=== PATIENT | female | born 1960 ===

== ENCOUNTER 2025-06-11 05:53 | Inpatient (IN) | payer SELFPAY, MEDICAID ==
[~2025-06-11] VITALS: Ht 165.1 cm; Wt 67.8 kg
--- NOTE | 2025-06-11 06:57 | ED.PDOC ---
Musculoskeletal HPI Comments 65 year old female with PMHx DVT presents to the ED via EMS with a chief complaint of LT leg pain onset 2 weeks. Patient has been experiencing LT leg pain, numbness, sore sensation for the past 2 weeks. About 1 month ago she was diagnosed with DVT RT leg, had stent placed by Dr. Willson, was advised she also needed stent of LT leg. Patient noticed pain worsened this morning, called 911. Denies fall, injury, nausea, vomiting, diarrhea, fever, chills, chest pain, shortness of breath, dizziness, headache. No other symptoms or modifying factors present at this time. Chief Complaint: Lower Extremity Time Seen by MD: 06:45 Reviewed Notes: Medications, Allergies Allergies: Coded Allergies: Tetanus Toxoid (Verified Allergy, Unknown, 06/11/25) Information Source: Patient, Emergency Med Personnel Mode of Arrival: EMS Location: Left Extremity Location: Leg Timing: Weeks Prehospital treatment: None Severity: Moderate Able to Move Extremity: Yes Bear Weight: Limited Pain: Moderate Associated signs and symptoms: Numbness, Leg pain Past Medical History PAST MEDICAL HISTORY: Denies Surgical History: Denies all surgeries HAND STONER History: No Pertinent HAND STONER History Family History Family History: Reviewed,noncontributory to illness, No family hx of Cancer, No family hx of DM, No family hx of Heart alessandro, No family hx of HTN, No family hx ofKidney alessandro, No family hx of Liver alessandro, No family hx of Lung alessandro, No family hx of Stroke Social History Smoker: Cigarettes Alcohol: Denies ETOH Use Drugs: Denies Drug Use Lives In: Home Constitutional: denies: chills, diaphoresis, fatigue, fever, malaise, sweats, weakness, others EENTM: denies: blurred vision, double vision, ear bleeding, ear discharge, ear drainage, ear pain, ear ringing, eye pain, eye redness, hearing loss, mouth pain, mouth swelling, nasal discharge, nose bleeding, nose congestion, nose pain, photophobia, tearing, throat pain, throat swelling, voice changes, others Respiratory: denies: cough, hemoptysis, orthopnea, SOB at rest, shortness of breath, SOB with excertion, stridor, wheezing, others Cardiovascular: denies: chest pain, dizzy spells, diaphoresis, Dyspnea on exertion, edema, irregular heart beat, left arm pain, lightheadedness, palpitations, PND, syncope, others Gastrointestinal: denies: abdomen distended, abdominal pain, blood streaked bowels, constipated, diarrhea, dysphagia, difficulty swallowing, hematemesis, melena, nausea, poor appetite, poor fluid intake, rectal bleeding, rectal pain, vomiting, others Genitourinary: denies: abnormal vagina bleeding, burning, dyspareunia, dysuria, flank pain, frequency, hematuria, incontinence, pain, , vagina discharge, urgency, others Neurological: reports: numbness (LT leg); denies: dizziness, fainting, headache, left sided numbness, left sided weakness, paresthesia, pre-existing deficit, right sided numbness, right sided weakness, seizure, speech problems, tingling, tremors, weakness, others Musculoskeletal: reports: others (Lt leg pain, numbness, sore sensation); denies: back pain, gout, joint pain, joint swelling, muscle pain, muscle stiffness, neck pain Integumetry: denies: bruises, change in color, change in hair/nails, dryness, laceration, lesions, lumps, rash, wounds, others Allergic/Immunocompromised: denies: Difficulty Healing, Frequent Infections, Hives, Itching, others Hematologic/Lymphatic: denies: anemia, blood clots, easy bleeding, easy bruising, swollen glands, others Endocrine: denies: excessive hunger, excessive sweating, excessive thirst, excessive urination, flushing, intolerance to cold, intolerance to heat, unexplained weight gain, unexplained weight loss, others Psychiatric: denies: anxiety, bipolar disorder, depression, hopeless, panic disorder, schizophrenia, sleepless, suicidal, others All Other Systems: Reviewed and Negative Physical Exam General Appearance: Normal HEENT: Normal ENT Inspection, Pharynx Normal, TMs Normal Neck: Full Range of Motion, Non-Tender, Normal, Normal Inspection Respiratory: Chest Non-Tender, Lungs Clear, No Accessory Muscle Use, No Respiratory Distress, Normal Breath Sounds Cardiovascular: No Edema, No JVD, No Murmur, No Gallop, Normal Peripheral Pulses, Regular Rate/Rhythm Breast Exam: Deferred Gastrointestinal: No Organomegaly, Non Tender, No Pulsatile Mass, Normal Bowel Sounds, Soft Genitalia: Deferred Pelvic: Deferred Rectal: Deferred Extremities: No calf tenderness, Normal capillary refill, Normal inspection, Normal range of motion, Non-tender, No pedal edema Musculoskeletal : Apperance: Normal Neurologic: Alert, shaping machine operator II-XII nml as Tested, No Motor Deficits, Normal Affect, Normal Mood, No Sensory Deficits Cerebellar Function: Normal Reflexes: Normal Skin: Dry, Normal Color, Warm Lymphatic: No Adenopathy Was a procedure done? Was a procedure done?: No Differential Diagnosis EXT Differential Diagnosis: Deep Vein Thrombosis, Arthritis X-Ray, Labs, Meds, VS Vital Signs Date Time Temp Pulse Resp B/P (MAP) Pulse Ox O2 Delivery O2 Flow Rate FiO2 06/11/25 07:28 98.9 76 17 133/67 (89) 98 98.9 06/11/25 06:01 99.7 81 16 118/77 98 99.7 Lab Test 06/11/25 09:33 06/11/25 06:46 Range/Units Lactic Acid Level 2.0 0.4-2.0 mmol/L White Blood Count 31.4 *H 4.4-10.8 10^3/uL Red Blood Count 5.84 H 4.0-5.20 10^6/uL Hemoglobin 15.7 12.2-16.2 g/dL Hematocrit 48.3 H 36.0-46.0 % Mean Corpuscular Volume 82.7 80.0-100.0 fL Mean Corpuscular Hemoglobin 27.0 L 28.0-32.0 pg Mean Corpuscular Hemoglobin Concent 32.6 32.0-36.0 g/dL Red Cell Distribution Width 16.1 H 11.8-14.3 % Platelet Count 373 140-450 10^3/uL Mean Platelet Volume 7.4 6.9-10.8 fL Neutrophils (%) (Auto) 37.0-80.0 % Lymphocytes (%) (Auto) 10.0-50.0 % Monocytes (%) (Auto) 0.0-12.0 % Basophils (%) (Auto) 0.0-2.0 % Neutrophils # (Auto) 1.6-8.6 10 ^3/uL Lymphocytes # (Auto) 0.4-5.4 10 ^3/uL Monocytes # (Auto) 0-1.3 10 ^3/uL Differential Total Cells Counted 100.0 100 Neutrophils % (Manual) 18 L 37.0-80.0 Band Neutrophils % (Manual) 0 Lymphocytes % (Manual) 78 H 10.0-50.0 Monocytes % (Manual) 4 0-12 Eosinophils % (Manual) 0 0-7 Basophils % (Manual) 0 0.0-2.0 Metamyelocytes % (manual) 0 Myelocytes % (Manual) 0 Promyelocytes % (Manual) 0 Blast Cells % (Manual) 0 Reactive Lymphocytes 0 Platelet Estimate Adequate Prothrombin Time 10.1 9.3-11.8 sec Prothrombin Time INR 0.95 0.9-1.15 Activated Partial Thromboplast Time 25.1 24.5-34.5 SEC Sodium Level 135 L 136-145 mmol/L Potassium Level 4.6 3.5-5.1 mmol/L Chloride Level 105 98-107 mmol/L Carbon Dioxide Level 23 20-31 mmol/L Anion Gap 7 5-15 Blood Urea Nitrogen 9 9-23 mg/dL Creatinine 0.97 0.550-1.02 mg/dL Glomerular Filtration Rate Calc 65 >90 mL/min BUN/Creatinine Ratio 9.3 L 10.0-20.0 Serum Glucose 249 H 74-106 mg/dL Calcium Level 9.6 8.7-10.4 mg/dL [place] [id number] Ph: [phone] DIAGNOSTIC IMAGING Diagnostic Imaging Report : [id number] Signed PATIENT: HOLLY VILLASEÑOR ACCT: [id number] UNIT: [id number] : 1960 LOC: ER ROOM / BED: / AGE / SEX: 65 / F ADM STATUS: REG ER SERVICE 4 ORDERING PHYSICIAN: KINGSTON FUNG MD PROCEDURE(s): CXRP - CHEST PORTABLE REASON: sepsis ORDER NUMBER(s): [id number], ACCESSION NUMBER(s): [id number] EXAM: XY CHEST PORTABLE HISTORY: sepsis COMPARISON: For reasons unknown, chest x-ray dated 04/28/2025 was not made available on the PACS system for viewing. TECHNIQUE: Portable upright AP view of the chest was performed. FINDINGS: No pneumothorax, consolidative infiltrates, or pulmonary edema. There is mild scarring in the lung bases. The heart is not enlarged. IMPRESSION: No acute intrathoracic process. ATED BY: GRAY JULIAN MD DICTATED DATE/TIME: 06/11/25 1014 SIGNED BY: GRAY JULIAN MD SIGNED DATE/TIME: 06/11/25 1014 CC: Time of 1ST Reevaluation: 07:15 Reevaluation 1ST: Unchanged Patient Education/Counseling: Diagnosis, Treatment, Prognosis Family Education/Counseling: No Family Present Sepsis Sepsis Reasesment Focused Exam Orders: Laboratory Tests 06/11/25 09:33: Lactic Acid Level 2.0 Critical Care Note Critical Care Time?: No Stability Stability form required: No Heart Score Heart Score: Heart Score Response (Comments) Value History N/A 0 EKG N/A 0 Age N/A 0 Risk Factors N/A 0 Troponin N/A 0 Total 0 I personally scribed for KINGSTON FUNG MD ([email or web address]) on 06/11/25 at 06:57. Electronically submitted by Isis Lebron ([email or web address]). I personally scribed for KINGSTON FUNG MD ([email or web address]) on 06/11/25 at 10:28. Electronically submitted by Colleen Collazo ([email or web address]). KINGSTON FUNG MD Jun 11, 2025 06:57
[2025-06-11 07:12] LABS: Hematocrit 48.3 % (36.0-46.0); Hemoglobin 15.7 g/dL (12.2-16.2); Mean Corpuscular Hemoglobin 27.0 pg (28.0-32.0); Mean Corpuscular Volume 82.7 fL (80.0-100.0)
[2025-06-11 07:18] LABS: Chloride 105 mmol/L (98-107); Potassium 4.6 mmol/L (3.5-5.1)
[2025-06-11 07:19] LABS: Anion Gap 7 (5-15); Carbon Dioxide 23 mmol/L (20-31)
[2025-06-11 07:20] LABS: Calcium 9.6 mg/dL (8.7-10.4)
[2025-06-11 07:23] LABS: INR 0.95 (0.9-1.15); Partial Thromboplastin Time 25.1 SEC (24.5-34.5); Prothrombin Time 10.1 sec (9.3-11.8)
[2025-06-11 07:25] LABS: BUN/Creatinine Ratio 9.3 (10.0-20.0)
[2025-06-11 07:27] LABS: Blood Urea Nitrogen 9 mg/dL (9-23); Glucose 249 mg/dL (74-106); Sodium 135 mmol/L (136-145)
[2025-06-11 08:07] LABS: Total Cells Counted 100.0 (100)
[2025-06-11] MEDS ORDERED: CEFEPIME 1GM/50ML 50 ML IV ONE (09:15)
--- NOTE | 2025-06-11 10:17 | DVH ---
EXAM: XY CHEST PORTABLE HISTORY: sepsis COMPARISON: For reasons unknown, chest x-ray dated 04/28/2025 was not made available on the PACS system for viewing. TECHNIQUE: Portable upright AP view of the chest was performed. FINDINGS: No pneumothorax, consolidative infiltrates, or pulmonary edema. There is mild scarring in the lung bases. The heart is not enlarged. IMPRESSION: No acute intrathoracic process.
[2025-06-11] MEDS: SODIUM CHLORIDE 0.9% 1,000 ML IV ONE (10:34)
[2025-06-11] MEDS: MORPHINE SULFATE 4 MG/ML SYR/VIAL IV ONE (10:38)
[2025-06-11] MEDS: ONDANSETRON HCL 4 MG/2 ML VIAL IV ONE (10:38)
[2025-06-11] MEDS: CEFEPIME 1GM/50ML 50 ML IV ONE (10:39)
[2025-06-11 10:40] VITALS: PULSE 86; RESP 16; O2SAT 97
[2025-06-11] MEDS ORDERED: VANCOMYCIN PER PHARMACY 0 MG IV SCH ×2 (11:00→17:45)
[2025-06-11] MEDS ORDERED: DOCUSATE SOD 100 MG CAP PO PRN ×2 (11:00→17:45)
[2025-06-11] MEDS ORDERED: DEXTROSE (50%) 50ML SYRG IV PRN ×2 (11:00→17:45)
[2025-06-11] MEDS ORDERED: ONDANSETRON HCL 4 MG/2 ML VIAL IV PRN ×2 (11:00→17:45)
[2025-06-11] MEDS ORDERED: NITROGLYCERIN 0.4 MG SL TAB SL PRN ×2 (11:00→17:45)
[2025-06-11] MEDS: SODIUM CHLORIDE 0.9% 1,000 ML IV SCH ×2 (11:00→17:45)
[2025-06-11 11:01] LABS: Urine Protein, UAD 1+ (Negative)
--- NOTE | 2025-06-11 11:05 | DVHHP2 ---
History of Present Illness Reason for Visit: left leg pain History of Present Illness 65 yr old female with a significant past medical history of peripheral arterial disease status post three right lower extremity stents placed in March 2025, coronary artery disease status post coronary stent in February 2025, prior DVT, type 2 diabetes mellitus, hypertension, and surgical history of hysterectomy and tonsillectomy, who presents with left lower extremity pain, numbness, and decreased sensation ongoing for approximately two weeks. The patient reports that approximately one month ago she was diagnosed with a DVT, at which time a vascular stent was placed by Dr. Rascon. She states she was told she would eventually need intervention on the left leg, which is pending as an outpatient in [place], but this has been delayed due to insurance issues. She also reports she was supposed to undergo an additional cardiac stent procedure, which has also been delayed. She reports burning pain, numbness, and decreased sensation in the left leg. She denies chest pain, shortness of breath, fever, or trauma. She notes redness and mild erythema of the left leg. She states she is not currently taking aspirin, having stopped it around April 2025 due to inability to obtain a refill. She is not on anticoagulation at this time per her report. She continues to smoke cigarettes. In the emergency department, she received IV morphine and ondansetron. Laboratory studies revealed marked leukocytosis (WBC 31.4) without fever, glucose 249 , sodium 135 , and lactate 2.0 . Chest x-ray was unremarkable. Blood cultures were obtained. Given concern for acute limb ischemia versus vascular compromise, the patient is admitted for vascular evaluation and close monitoring of the left limb Past Medical History See HPI above Past Surgical History See HPI above Family History Reviewed, non-contributory to the management of this case. Past Social History Patient does smoke by history denies drug or alcohol use Review of Systems Constitutional: No: Fever, Chills, Sweats, Weakness, Malaise, Other Eyes: No: Pain, Vision change, Conjunctivae inflammation, Eyelid inflammation, Other, Redness ENT: No: Ear pain, Ear discharge, Nose pain, Nose discharge, Nose congestion, Mouth pain, Mouth swelling, Throat pain, Throat swelling, Other Respiratory: No: Cough, Dry, Shortness of breath, SOB with excertion, Wheezing, Hemoptysis, Pleuritic Pain, Sputum, Wheezing, Other Cardiovascular: No: Chest Pain, Palpitations, Orthopnea, Paroxysmal Noc. Dyspnea, Edema, Lt Headedness, Other Gastrointestinal: No: Nausea, Vomiting, Abdominal Pain, Diarrhea, Constipation, Melena, Hematochezia, Other Genitourinary: No Dysuria, No Frequency, No Incontinence, No Hematuria, No Retention, No Other Musculoskeletal: leg pain; No: other, neck pain, shoulder pain, arm pain, back pain, hand pain, foot pain Skin: No: Rash, Lesions, Jaundice, Bruising, Other Neurological: No: Weakness, Numbness, Incoordination, Change in speech, Confusion, Seizures, Other Allergies: Coded Allergies: Tetanus Toxoid (Verified Allergy, Unknown, 06/11/25) Exam Vital Signs Vital Signs Date Time Temp Pulse Resp B/P (MAP) Pulse Ox O2 Delivery O2 Flow Rate FiO2 06/11/25 10:40 98.0 86 16 152/90 (110) 97 98.0 06/11/25 10:40 Room Air* 0 21 General Appearance: Alert, Oriented X3, Cooperative, No acute distress HEENT: Atraumatic, PERRLA, EOMI, Mucous membr. moist/pink Respiratory: Clear to auscultation, Normal air movement Cardiovascular: Regular rate, Normal S1, Normal S2, No murmurs Abdominal: Normal bowel sounds, Soft, No tenderness, No hepatospenomegaly, No masses Extremities: No clubbing, Other (left leg with erythema, mild cool nursing to doppler pulse ) Skin: No rashes, No breakdown, No significant lesion Neuro: Normal speech, Strength at 5/5 X4 ext, Normal tone, Sensation intact, Cranial nerves 3-12 NL, Other (neuro non focal) Psych/Mental Status: Mental status NL, Mood NL Labs/Xrays Chest x-ray unremarkable I reviewed labs, imaging CT scan abdomen pelvis, EKG and all diagnostic studies on this patient from ED records and the medical chart Labs Test 06/11/25 10:49 06/11/25 09:33 06/11/25 06:46 Range/Units Lactic Acid Level 2.0 0.4-2.0 mmol/L White Blood Count 31.4 *H 4.4-10.8 10^3/uL Red Blood Count 5.84 H 4.0-5.20 10^6/uL Hemoglobin 15.7 12.2-16.2 g/dL Hematocrit 48.3 H 36.0-46.0 % Mean Corpuscular Volume 82.7 80.0-100.0 fL Mean Corpuscular Hemoglobin 27.0 L 28.0-32.0 pg Mean Corpuscular Hemoglobin Concent 32.6 32.0-36.0 g/dL Red Cell Distribution Width 16.1 H 11.8-14.3 % Platelet Count 373 140-450 10^3/uL Mean Platelet Volume 7.4 6.9-10.8 fL Neutrophils (%) (Auto) 37.0-80.0 % Lymphocytes (%) (Auto) 10.0-50.0 % Monocytes (%) (Auto) 0.0-12.0 % Basophils (%) (Auto) 0.0-2.0 % Neutrophils # (Auto) 1.6-8.6 10 ^3/uL Lymphocytes # (Auto) 0.4-5.4 10 ^3/uL Monocytes # (Auto) 0-1.3 10 ^3/uL Differential Total Cells Counted 100.0 100 Neutrophils % (Manual) 18 L 37.0-80.0 Band Neutrophils % (Manual) 0 Lymphocytes % (Manual) 78 H 10.0-50.0 Monocytes % (Manual) 4 0-12 Eosinophils % (Manual) 0 0-7 Basophils % (Manual) 0 0.0-2.0 Metamyelocytes % (manual) 0 Myelocytes % (Manual) 0 Promyelocytes % (Manual) 0 Blast Cells % (Manual) 0 Reactive Lymphocytes 0 Platelet Estimate Adequate Prothrombin Time 10.1 9.3-11.8 sec Prothrombin Time INR 0.95 0.9-1.15 Activated Partial Thromboplast Time 25.1 24.5-34.5 SEC Sodium Level 135 L 136-145 mmol/L Potassium Level 4.6 3.5-5.1 mmol/L Chloride Level 105 98-107 mmol/L Carbon Dioxide Level 23 20-31 mmol/L Anion Gap 7 5-15 Blood Urea Nitrogen 9 9-23 mg/dL Creatinine 0.97 0.550-1.02 mg/dL Glomerular Filtration Rate Calc 65 >90 mL/min BUN/Creatinine Ratio 9.3 L 10.0-20.0 Serum Glucose 249 H 74-106 mg/dL Calcium Level 9.6 8.7-10.4 mg/dL SEPSIS Sepsis Screen Date sepsis recognized/suspect: Jun 11, 2025 Time Sepsis recognized/suspect: 1040 Recent Procedure: No On Antibiotic Therapy: No Respiratory Rate >20: No Heart Rate >90: No Temp<36 C (96.8 F) or >38.3 C: No SBP <90 or MAP <65 mmHG: No New Acute Mental Status Change: No Is the patient on CPAP, BIPAP,: No Physician Orders Urinalysis (06/11/25 09:05) Chest Portable (06/11/25 09:05) Accucheck (06/11/25 09:05) Blood Culture (06/11/25 09:05) Notify Md If Map <65 Or Bp<90 (06/11/25 09:05) If Map<65 Start Vasopressor (06/11/25 09:05) Sepsis Reassesment After Fluid (06/11/25 10:05) Insert Midline (06/11/25 09:18) Cefepime 1gm/50ml (Maxipime 1gm/50ml) (06/11/25 10:45) Admit (06/11/25 10:53) Allergies (06/11/25 10:53) Code Status (06/11/25 10:53) 0.9% Ns 1000 Ml (06/11/25 11:00) Ondansetron Hcl (Zofran) (06/11/25 11:00) Docusate Sodium Capsule (Colace Capsule) (06/11/25 11:00) Complete Blood Count (06/12/25 04:00) Comprehensive Metabolic Panel (06/12/25 04:00) Cardiac Diet-2gna,Lofat,Lochol (06/11/25 Lunch) Condition: Stable (06/11/25 10:53) BRP (06/11/25 10:53) Morphine Sulfate Injection (06/11/25 11:00) Sequential Compression Device (06/11/25 ) Nitroglycerin Sublingual (Ntrostat Subli (06/11/25 11:00) Stat Ekg For Chest Pain (06/11/25 10:53) Notify Md Of Changes From Base (06/11/25 10:53) Imaging Manager For 24 Hours (06/11/25 10:53) Emergency Dysrhythmia Protocol (06/11/25 10:53) Rhythm Strips Once Every Shift (06/11/25 10:53) Oxygen By Nasal Cannula (06/11/25 10:53) Glucose Blood (Accu-Chek Comfort Curve T (06/11/25 11:30) Vital Signs Date Time Temp Pulse Resp B/P (MAP) Pulse Ox O2 Delivery O2 Flow Rate FiO2 06/11/25 10:40 98.0 86 16 152/90 (110) 97 98.0 06/11/25 10:40 86 16 97 Room Air* 0 21 06/11/25 10:40 82 16 152/90 (110) 97 06/11/25 10:38 82 16 152/90 06/11/25 07:28 98.9 76 17 133/67 (89) 98 98.9 06/11/25 06:01 99.7 81 16 118/77 98 99.7 Laboratory Tests Test 06/11/25 06:46 06/11/25 09:33 White Blood Count 31.4 10^3/uL (4.4-10.8) *H Lactic Acid Level 2.0 mmol/L (0.4-2.0) Medications Medications Dose Ordered Sig/Yamilex Route Start Time Stop Time Status Last Admin Dose Admin Cefepime HCl 50 ml @ 50 mls/hr ONCE ONCE IV 06/11/25 10:45 06/11/25 11:44 06/11/25 10:39 50 MLS/HR Morphine Sulfate 4 mg ONCE ONCE IV 06/11/25 06:45 06/11/25 06:46 DC 06/11/25 10:38 4 MG Ondansetron HCl 4 mg ONCE ONCE IV 06/11/25 06:45 06/11/25 06:46 DC 06/11/25 10:38 4 MG Sodium Chloride 1,000 ml @ 1,000 mls/hr Q1H ONCE IV 06/11/25 06:45 06/11/25 07:44 DC 06/11/25 10:34 1,000 MLS/HR Assessment/Plan Assessment/Plan 65 female with admitted for left lower extremity pain, numbness, and decreased sensation in the setting of known peripheral arterial disease and recent vascular interventions, concerning for possible acute or subacute limb ischemia, requiring vascular surgery evaluation and inpatient monitoring. acute Left lower extremity pain with numbness and decreased sensation concern for limb ischemia (etiology remains unclear until the cta angio returns but with stable exam) Peripheral arterial disease, status post right lower extremity stents (Mar 2025)/Known advanced PAD Two-week history of worsening symptoms Left leg with erythema and sensory changes Neurovascular checks Circulation and pulse checks per nursing q1h for now Vascular surgery consult (Dr. Rascon) (will change to stat if there if vascular occlusion). if not available specialist will need to transfer to higher level of care ordered CT angiography with runoff ordered pending results Initiate heparin infusion pending vascular evaluation Resume antiplatelet therapy once cleared acute severe Leukocytosis without fever likely 2nd infection vs tissue necrosis WBC 31.4 Blood cultures 2 obtained Monitor CBC and clinical status ordered vanco and cefepime for now ordered lactic ordered heparin for now Coronary artery disease, status post coronary stent (Feb 2025) Not currently on aspirin Restart aspirin when deemed safe Cardiology consult (Dr. Bean) chronic problems Type 2 diabetes mellitus with hyperglycemia ISS/Accu-checks History of DVT, not currently anticoagulated pt ran out of medication Tobacco use disorder Active smoker Smoking cessation counseling FEN / PPx Fluids: IV fluids as needed Electrolytes: Monitor BMP Nutrition: Cardiac/diabetic diet DVT Prophylaxis: Therapeutic heparin GI Prophylaxis: Not indicated Disposition Admit to telemetry for vascular surgery evaluation, anticoagulation, neurovascular monitoring, and completion of CTA with runoff. Further intervention pending vascular surgery recommendations. Plan discussed with: Patient My Orders Orders - YAJAIRA STONE DNP Procedure Category Date Status Time Admit ADMIT 06/11/25 Verified 10:53 Allergies [facility] 06/11/25 Verified 10:53 Code Status CODE 06/11/25 Verified 10:53 0.9% Ns 1000 Ml [facility] 06/11/25 Verified 11:00 Ondansetron Hcl [facility] 06/11/25 Verified (Zofran) 11:00 Docusate Sodium [facility] 06/11/25 Verified Capsule (Colace 11:00 Complete Blood Count LAB 06/12/25 Verified 04:00 Comprehensive LAB 06/12/25 Verified Metabolic Panel 04:00 Cardiac DIET 06/11/25 Verified Diet-2gna,Lofat,Lochol Lunch Condition: Stable [facility] 06/11/25 Verified 10:53 BRP [facility] 06/11/25 Verified 10:53 Morphine Sulfate [facility] 06/11/25 Verified Injection 11:00 Sequential [facility] 06/11/25 Verified Compression Device Nitroglycerin [facility] 12/18/25 Verified Sublingual (Ntrostat 11:00 Stat Ekg For Chest [facility] 06/11/25 Verified Pain 10:53 Notify Md Of Changes [facility] 06/11/25 Verified From Base 10:53 Imaging Manager For [facility] 06/11/25 Verified 24 Hours 10:53 Emergency Dysrhythmia [facility] 06/11/25 Verified Protocol 10:53 Rhythm Strips Once [facility] 06/11/25 Verified Every Shift 10:53 Oxygen By Nasal RT 06/11/25 Verified Cannula 10:53 Glucose Blood [facility] 06/11/25 Verified (Accu-Chek Comfort 11:30 Date of Service: Jun 11, 2025 Billing Provider: YAJAIRA STONE DNP Common Visit Codes: [id number] INP/OBS CARE (HIGH), [id number] CARE 30- 74 MIN (Total critical care time: Approximately 45 minutes This critical care time included obtaining a history; examining the patient; pulse oximetry; ordering and review of studies; arranging urgent treatment with development of a management plan; evaluation of patient's response to treatment; frequent reassessment; and, discussions with other providers.) YAJAIRA STONE DNP Jun 11, 2025 11:05
[2025-06-11] MEDS: ACCU-CHEK COMFORT CURVE STRIP VI SCH ×2 (11:30→21:18)
[2025-06-11] MEDS: IOHEXOL 350 MG/ML 100ML IJ ONE (11:47)
[2025-06-11] MEDS: LACTATED RINGER'S 1,700 ML IV ONE (11:57)
[2025-06-11] MEDS: VANCOMYCIN 1GM/250ML KIT 250 ML IV ONE (11:57)
[2025-06-11 11:58] LABS: Hematocrit 47.8 % (36.0-46.0); Hemoglobin 15.2 g/dL (12.2-16.2); Mean Corpuscular Hemoglobin 26.9 pg (28.0-32.0); Mean Corpuscular Volume 84.4 fL (80.0-100.0)
[2025-06-11] MEDS ORDERED: MORPHINE SULFATE 4 MG/ML SYR/VIAL IV PRN (12:00)
[2025-06-11] MEDS: InsuLIN REG 1unit/0.01ml Soln (100units/ml) SC SCH ×2 (12:17→21:15)
[2025-06-11 12:22] LABS: INR 0.97 (0.9-1.15); Partial Thromboplastin Time 24.5 SEC (24.5-34.5); Prothrombin Time 10.3 sec (9.3-11.8)
[2025-06-11 12:28] LABS: Total Cells Counted 100.0 (100)
--- NOTE | 2025-06-11 12:45 | DVH ---
INDICATION: eval for arterial occlusion in left leg severe leg pain TECHNIQUE: CT axial images of the abdomen , pelvis, lower extremities are obtained without contrast. Coronal and sagittal reformats were obtained. Radiation Dose Information: CTDI volume is 8.6 mGy. Dose-length product is 1270.14 mGy*cm COMPARISON: 04/29/2025 FINDINGS: Coronary artery calcification disease. Abdominal aorta demonstrates atherosclerotic calcification disease, eccentric mural wall thrombus without evidence for aneurysmal dilatation. 60% stenosis of the proximal celiac artery. The SMA demonstrates mild less than 50% stenosis. Bilateral renal arteries dem onstrate no high-grade stenosis. ADOLFO patent. The left common iliac artery demonstrates 50% stenosis. The right common iliac artery demonstrates 50% stenosis. The left external iliac artery demonstrates 70% stenosis proximally. Approximately 50% stenosis of the left AMERICANIZATION TEACHER. Occlusion of the left SFA proximally with reconstitution of the left popliteal artery. The left popliteal artery demonstrates long segment moderate stenosis, 60% stenosis. The left anterior tibial, posterior tibial and peroneal arteries are patent to the level of the left ankle. There is a right external iliac artery stent. Occlusion of the right internal iliac artery proximally with distal reconstitution. Approximate 50% stenosis of the right AMERICANIZATION TEACHER. Right SFA demonstrates moderate grade stenosis distally, 60% stenosis. Right popliteal artery demonstrates [id number] stenosis diffusely of up to apex approximate 50% stenosis. The right posterior tibial and peroneal arteries are patent up to the level of the ankle. The right anterior tibial artery is poorly opacified as it approaches the ankle. Lung bases demonstrate atelectasis. Adrenal glands, spleen, pancreas unremarkable. No enhancing hepatic lesion. No CT evidence for cholelithiasis. No hydronephrosis. Small hiatal hernia. Small bowel loops normal in caliber. Colonic diverticular disease. Moderate volume stool in the colon. Bladder partially distended. No free pelvic fluid. No inguinal lymphadenopathy. [id number] thoracolumbar degenerative disc disease. IMPRESSION: Occlusion of the left SFA proximally /at its origin with reconstitution of the left popliteal artery. Long segment moderate grade stenosis of the left popliteal artery, approximately 60%. Recommend vascular surgery/ IR consultation. 70% stenosis of the proximal left external iliac artery. 50% stenosis left AMERICANIZATION TEACHER. Right external iliac artery stent. 50% stenosis right AMERICANIZATION TEACHER. Distal right SFA 60% stenosis. Poor opacification of the distal right anterior tibial artery. 60% stenosis of the proximal celiac artery. Coronary artery calcification disease.
[2025-06-11] MEDS: HEPARIN SODIUM (PORCINE) 5000 UNITS/ML 1ML VIAL IV ONE (16:04)
[2025-06-11] MEDS: HEPARIN DRIP/D5W 100UNITS/ML 250 ML IV SCH ×3 (16:08→20:47)
[2025-06-11 17:04] VITALS: BP 129/68; PULSE 86; RESP 20; TEMP 98; O2SAT 100
[2025-06-11 17:11] VITALS: BP 129/68; PULSE 86; RESP 16; TEMP 98; O2SAT 100
--- NOTE | 2025-06-11 17:12 | DVH ---
CLINICAL HISTORY: eval for dvt to left leg COMPARISON: US RT LOWER DVT on DOS: 04/16/25 TECHNIQUE: Duplex Doppler evaluation of the deep venous system of the left lower extremity from the common femoral vein to the popliteal vein including color Doppler and spectral/pulsed waveform analysis was performed. FINDINGS: The common femoral vein demonstrates appropriate compressibility and waveform variability. There is compressibility/patency of the great saphenous vein at the proximal thigh. The femoral vein demonstrates appropriate compressibility and waveform variability. The deep femoral vein demonstrates appropriate compressibility and waveform variability. The popliteal vein demonstrates appropriate compressibility and waveform variability. There is normal compressibility at the tibioperoneal trunk. IMPRESSION: 1. No left deep venous thrombosis. 2. If clinical concern/symptoms persist or worsen, short-interval follow-up study is suggested.
--- NOTE | 2025-06-11 17:15 | PRN ---
Misceleneous Note Note Note pt admission on hold since had ordered ct angio that was not completed prior to admission while waiting found to have Occlusion of the left SFA proximally /at its origin with reconstitution of the left popliteal artery. Long segment moderate grade stenosis of the left popliteal artery, approximately 60%. Recommend vascular surgery/ IR consultation. 70% stenosis of the proximal left external iliac artery. 50% stenosis left PROOF TECHNICIAN HELPER. Right external iliac artery stent. 50% stenosis right PROOF TECHNICIAN HELPER. Distal right SFA 60% stenosis. Poor opacification of the distal right anterior tibial artery. 60% stenosis of the proximal celiac artery. did speak with vascular not available to see pt since no specialist available will have to hold dc and transfer to higher level of care did order heparin thearpy prior to findings, did speak with ed team pt to be transferred with need vascular surgeon YAJAIRA STONE DNP Jun 11, 2025 17:15
[2025-06-11] MEDS ORDERED: HEPARIN SODIUM (PORCINE) 5000 UNITS/ML 1ML VIAL IV ONE (17:45)
[2025-06-11] MEDS ORDERED: MORPHINE SULFATE INJ 2 MG/ml SYRG IV PRN (17:45)
[2025-06-11 18:24] LABS: Mean Corpuscular Volume 83.8 fL (80.0-100.0)
[2025-06-11 18:26] LABS: Hematocrit 44.1 % (36.0-46.0); Hemoglobin 14.1 g/dL (12.2-16.2); Mean Corpuscular Hemoglobin 26.8 pg (28.0-32.0)
[2025-06-11 18:30] VITALS: BP 129/77; PULSE 62; RESP 18; TEMP 98.1; O2SAT 91
[2025-06-11 19:11] LABS: INR 1.01 (0.9-1.15); Prothrombin Time 10.7 sec (9.3-11.8)
[2025-06-11 19:19] LABS: Partial Thromboplastin Time 79.1 SEC (24.5-34.5)
[2025-06-11 19:28] LABS: Anisocytosis Slight; Total Cells Counted 100.0 (100)
[2025-06-11 20:00] VITALS: PULSE 106; PULSE 91; RESP 18
--- NOTE | 2025-06-11 20:45 | CONS ---
Pharmacy Clinical Information: HEPARIN PER DVT PROTOCOL: APTT result of 79.1 received from draw on 06/11 @1806. Reduce rate 200 units per hour. New rate is 1000 units per hour (10ml/hr). Orders read back and confirmed with TRACY Moore @2039. Next APTT scheduled for 06/12 @0280. CJ TERRELL PHARMACIST Jun 11, 2025 20:45
[2025-06-11 21:00] VITALS: BP 141/72; PULSE 94; RESP 18; TEMP 98.4; O2SAT 90
[2025-06-11] MEDS: DOCUSATE SOD 100 MG CAP PO SCH (21:11)
[2025-06-11] MEDS: CEFEPIME 1GM/50ML 50 ML IV SCH (21:17)
[2025-06-11] MEDS ORDERED: InsuLIN REG 1unit/0.01ml Soln (100units/ml) SC SCH (22:00)
[2025-06-11] MEDS ORDERED: CEFEPIME 1GM/50ML 50 ML IV SCH (22:00)
[2025-06-12] VITALS (8 sets, daily range): BP systolic 137–152; BP diastolic 65–84; PULSE 65–111; RESP 16–20; TEMP 97.6–99.4; O2SAT 93–100
[2025-06-12] MEDS ORDERED: VANCOMYCIN 500mg/100mL 100 ML IV SCH
[2025-06-12] MEDS: VANCOMYCIN 500mg/100mL 100 ML IV SCH (01:42)
[2025-06-12 02:56] LABS: INR 0.97 (0.9-1.15); Partial Thromboplastin Time 37.9 SEC (24.5-34.5); Prothrombin Time 10.3 sec (9.3-11.8)
[2025-06-12] MEDS: MORPHINE SULFATE 4 MG/ML SYR/VIAL IV PRN (03:25)
[2025-06-12] MEDS: HEPARIN DRIP/D5W 100UNITS/ML 250 ML IV SCH ×2 (03:38→21:56)
[2025-06-12 06:57] LABS: Hematocrit 41.0 % (36.0-46.0); Hemoglobin 13.2 g/dL (12.2-16.2); Mean Corpuscular Hemoglobin 26.6 pg (28.0-32.0); Mean Corpuscular Volume 82.6 fL (80.0-100.0)
[2025-06-12 07:10] LABS: Alanine Aminotransferase 14 U/L (7-40); Albumin 4.0 g/dL (3.2-4.8); Anion Gap 8 (5-15); BUN/Creatinine Ratio 19.8 (10.0-20.0); Bilirubin, Total 0.4 mg/dL (0.2-1.0); Blood Urea Nitrogen 19 mg/dL (9-23); Calcium 8.7 mg/dL (8.7-10.4); Carbon Dioxide 25 mmol/L (20-31); Chloride 104 mmol/L (98-107); Potassium 4.6 mmol/L (3.5-5.1); Sodium 137 mmol/L (136-145); Total Protein 6.2 g/dL (5.7-8.2)
[2025-06-12 07:18] LABS: Alkaline Phosphatase 178 U/L (46-116); Glucose 244 mg/dL (74-106)
[2025-06-12 07:57] LABS: Smudge Cells 4 /100 WBC; Total Cells Counted 100.0 (100)
[2025-06-12 12:21] LABS: INR 0.97 (0.9-1.15); Partial Thromboplastin Time 53.4 SEC (24.5-34.5); Prothrombin Time 10.3 sec (9.3-11.8)
--- NOTE | 2025-06-12 12:36 | CONS ---
Pharmacy Clinical Information: HEPARIN PER ACS PROTOCOL: APTT result of 53.4 received from draw on 06/12 @1148. No change per PRx protocol. Continue rate at 1200 units per hour (12ml/hr). Orders read back and confirmed with TRACY Crook @2807. Next APTT scheduled for 1800. CJ TERRELL PHARMACIST Jun 12, 2025 12:36
--- NOTE | 2025-06-12 14:12 | DVHPN2 ---
Progress Note - Dictate Date Seen: Jun 11, 2025 Medical Necessity Reason Pt with a Central, PICC or Fol: No Subjective PT WITH EXTENSIVE HX OF PAD HX OF STENT PLACEMENT CAD HX OF PTCA STENT NEEDS FURTHER STAGED INTERVENTION DIABETES VASCULOPATHY NEPHROPATHY HX OF DVT NOW WITH LE PAIN LEUCOCYTOSIS vital signs Vital Sign Date Time Temp Pulse Resp B/P (MAP) Pulse Ox O2 Delivery O2 Flow Rate FiO2 06/12/25 13:00 97.6 91 16 152/83 (106) 98 97.6 06/11/25 20:00 Room Air* 0 21 Total Intake and Output 06/11/25 06/11/25 06/12/25 15:00 23:00 07:00 Intake Total 350 ml 150 ml Balance 350 ml 150 ml medications Current Medications Medications Dose Ordered Sig/Yamilex Route Start Time Stop Time Status Last Admin Dose Admin Diagnostic Test (Pha) 1 strip ACHS 06/11/25 22:00 06/12/25 12:04 1 STRIP Insulin Human Regular ACHS SC 06/11/25 22:00 06/12/25 12:08 4 UNITS Dextrose 50 ml UD PRN IV 06/11/25 17:45 Sodium Chloride 1,000 ml @ 70 mls/hr [id number] IV 06/11/25 17:45 06/12/25 08:03 70 MLS/HR Ondansetron HCl 4 mg Q4HP PRN IV 06/11/25 17:45 Docusate Sodium 100 mg BIDPRN PRN PO 06/11/25 17:45 Nitroglycerin 0.4 mg Q5MINP PRN SL 06/11/25 17:45 Cefepime HCl 50 ml @ 12.5 mls/hr Q12HR IV 06/11/25 22:00 06/12/25 10:04 12.5 MLS/HR Docusate Sodium 100 mg BID PO 06/11/25 22:00 Morphine Sulfate 2 mg Q4HPRN PRN IV 06/12/25 03:15 06/12/25 03:25 2 MG Heparin Sodium/ Dextrose 250 ml @ 12 mls/hr [id number] IV 06/12/25 03:30 06/12/25 12:11 12 MLS/HR laboratory and microbiology Laboratory Tests 06/12/25 05:30 Test 06/12/25 05:30 Range/Units Serum Glucose 244 H 74-106 mg/dL Problem List EXTENSIVE HX OF PAD HX OF STENT PLACEMENT CAD HX OF PTCA STENT NEEDS FURTHER STAGED INTERVENTION DIABETES VASCULOPATHY NEPHROPATHY HX OF DVT NOW WITH LE PAIN LEUCOCYTOSIS Assessment/Plan PT WITH PROGRESSIVE SC OF CLAUDICATION CTA OF LE Occlusion of the left SFA proximally /at its origin with reconstitution of the left popliteal artery. Long segment moderate grade stenosis of the left popliteal artery, approximately 60%. Recommend vascular surgery/ IR consultation. 70% stenosis of the proximal left external iliac artery. 50% stenosis left SUBSORTER. Right external iliac artery stent. 50% stenosis right SUBSORTER. Distal right SFA 60% stenosis. Poor opacification of the distal right anterior tibial artery. 60% stenosis of the proximal celiac artery. DAPT CONSIDER LE ANGION Plan discussed with: Patient TIKA RODRIGUES MD Jun 12, 2025 14:12
--- NOTE | 2025-06-12 14:13 | DVHPNRES ---
Progress Note Date Seen: Jun 12, 2025 Resident Creating Document: BOOKER HERRERA RESIDENT Medical Necessity Reason Pt with a Central, PICC or Fol: No Subjective Review of Systems Ms. Curtis is a 65-year-old female prior medical history of PAD status post placement of 3 right lower extremities stents in March 2025, CAD s/p PCI x 1 drug-eluting stent placed in February 2025, DVT, type 2 diabetes mellitus, hypertension, and leukemia for which she is setting up care at [facility], who presented [facility] with chief complaint of left lower extremity pain. The patient states 2-3 weeks ago she began to have left foot pain described as stabbing/ burning, 10/10 intensity, associated with tingling sensation, without aggravating or relieving factors or changes in skin color. She denies fever, vomiting, nausea, shortness breath, chest pain, abdominal pain, palpitations, headaches, and changes in coloration of skin. Patient had 3 stents placed in the right lower extremity in March [address] Etienne, with pending procedure in [place]. due to worsening pain, the patient presented to the emergency room for evaluation. On evaluation in the ED, she is afebrile, normocardiac, slightly hypertensive, saturating adequately on room air. initial labs are significant for elevated WBCs likely due to underlying leukemia, mild hyponatremia, hyperglycemia, and UA significant for UTI. Chest x-ray shows no acute intrathoracic process. CTA abdomen with aortic runoff was ordered and shows occlusion of the left SFA proximally at its origin with reconstitution of the left popliteal artery, long segment moderate grade stenosis of the left popliteal artery approximately 60%, 70% stenosis of the proximal left external iliac artery, 50% diagnosis left HAND SINGER, right external iliac artery stent, 50% stenosis right HAND SINGER, distal right SFA 60% stenosis. The patient was started on IV heparin and was admitted for further workup and management. 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 She states she is well, pain has decreased from 10/10 to 4/10, she is able to ambulate with limited difficulty. She is afebrile, tachycardic, blood pressure within normal range, saturating adequately on room air. Consult has been placed to Dr. Vitale for evaluation for potential left lower extremity stent placement. Review of Systems: Constitutional: Denies weight loss, fever and chills. HEENT: Denies changes in vision and hearing. Respiratory: Denies shortness of breath and cough Cardiovascular: Denies chest discomfort or palpitations GI: Denies abdominal distention, abdominal pain, diarrhea : Denies dysuria and urinary frequency. Musculoskeletal: Refers left lower extremity pain Skin: Denies rash and pruritus. Neurological: denies dizziness headache vision or hearing problems Objective vital signs Vital Sign Date Time Temp Pulse Resp B/P (MAP) Pulse Ox O2 Delivery O2 Flow Rate FiO2 06/12/25 13:00 97.6 91 16 152/83 (106) 98 97.6 06/11/25 20:00 Room Air* 0 21 Total Intake and Output 06/11/25 06/11/25 06/12/25 15:00 23:00 07:00 Intake Total 350 ml 150 ml Balance 350 ml 150 ml medications Current Medications Medications Dose Ordered Sig/Yamilex Route Start Time Stop Time Status Last Admin Dose Admin Diagnostic Test (Pha) 1 strip ACHS 06/11/25 22:00 06/12/25 12:04 1 STRIP Insulin Human Regular ACHS SC 06/11/25 22:00 06/12/25 12:08 4 UNITS Dextrose 50 ml UD PRN IV 06/11/25 17:45 Sodium Chloride 1,000 ml @ 70 mls/hr [id number] IV 06/11/25 17:45 06/12/25 08:03 70 MLS/HR Ondansetron HCl 4 mg Q4HP PRN IV 06/11/25 17:45 Nitroglycerin 0.4 mg Q5MINP PRN SL 06/11/25 17:45 Cefepime HCl 50 ml @ 12.5 mls/hr Q12HR IV 06/11/25 22:00 06/12/25 10:04 12.5 MLS/HR Morphine Sulfate 2 mg Q4HPRN PRN IV 06/12/25 03:15 06/12/25 03:25 2 MG Heparin Sodium/ Dextrose 250 ml @ 12 mls/hr [id number] IV 06/12/25 03:30 06/12/25 12:11 12 MLS/HR Examination General: The patient alert and oriented in person place and time. Patient following commands HEENT: Normocephalic, atraumatic, normal reactive pupils, EOM intact, pink conjunctiva, pink moist mucous membrane Respiratory/pulmonary: Bilateral chest expansion, no pain on palpation of chest wall, clear lungs bilaterally, vesicular murmurs present in almost all lung cummings, no associated crackles or wheezes. Cardiovascular: Normal RRR, normal S1 and S2, no murmurs Abdomen: Abdomen nondistended, normal bowel sounds, soft, there is no pain to palpation in any of the abdominal quadrants, no palpable masses. Extremities: No deformities, there is no peripheral edema present at the lower extremities, Pulses are decreased in left lower extremity Skin: No rashes or pruritus, there is no sacral edema present at this time. Neurological: Intact cranial nerves with no focal neurologic deficits laboratory and microbiology Laboratory Tests 06/12/25 05:30 Test 06/12/25 05:30 Range/Units Serum Glucose 244 H 74-106 mg/dL Microbiology Date/Time Source Procedure Growth Status 06/11/25 09:42 Blood Blood Culture - Preliminary NO GROWTH AFTER 24 HOURS OF INCUBATION. Resulted Problem List/Assessment/Plan Problem List/Assessment/Plan Assessment and Plan: Peripheral Artery Disease with acute claudication s/p 3 stents in right lower extremity - CTA Abdomen with Aortic Run Off: Occlusion of the left SFA proximally /at its origin with reconstitution of the left popliteal artery. Long segment moderate grade stenosis of the left popliteal artery, approximately 60%. Recommend vascular surgery/ IR consultation. 0% stenosis of the proximal left external iliac artery. 50% stenosis left HAND SINGER.Right external iliac artery stent. 50% stenosis right HAND SINGER. Distal right SFA 60% stenosis. Poor opacification of the distal right anterior tibial artery.60% stenosis of the proximal celiac artery. -Heparin drip -Dr. Vitale has been consulted for possible left lower extremity stent placement CAD status post PCI x1 JOEL - Aspirin 81 mg PO daily Acute complicated UTI -Cefepime 1 g IV daily - urine culture pending Leukemia -Leukocytosis is secondary to leukemia, no sepsis at this time -Vancomycin discontinued Chronic HFrEF, not exacerbated -Echocardiogram: : Entire anterior and apical wall hypokinesis, LVEF is 35% +, moderate degree LVH and moderate degree of LV diastolic dysfunction, moderate degree mitral regurgitation, normal valves, no effusion -Continue GDMT Type 2 diabetes mellitus with hyperglycemia - SSI - Accu- cheks Hypertension - Monitor BP - Entresto Tobacco use - I counseled the patient on the importance of complete smoking cessation for over 16 minutes Diet: Cardiac DVT prophylaxis: Patient is on heparin drip GI prophylaxis: Protonix 40 mg PO daily Goals of care discussed with the patient for over 39 minutes. FULL CODE. Case discussed with Dr. Mazariegos Plan discussed with: Patient, Other (Nurse) My Orders My Orders Orders - BOOKER HERRERA Procedure Category Date Status Time Urine Bacterial JOCY 06/12/25 Logged Culture 14:02 Visit Coding STANDARD RES Billing Provider: ANTONIO MAZARIEGOS MD Date of Service if different f: Jun 12, 2025 Common Visit Codes: [id number] INP/OBS CARE(HIGH) BOOKER HERRERA RESIDENT Jun 12, 2025 14:13 ANTONIO MAZARIEGOS MD Jun 19, 2025 09:58
[2025-06-12] MEDS: FUROSEMIDE 20 MG TAB PO ONE (15:58)
[2025-06-12] MEDS: CLOPIDOGREL BISULFATE 75 MG TAB PO ONE (15:59)
[2025-06-12] MEDS: INSULIN LISPRO (HUMAN) 100 UNITS/ML ML SC SCH (16:50)
[2025-06-12 19:01] LABS: INR 0.97 (0.9-1.15); Partial Thromboplastin Time 49.9 SEC (24.5-34.5); Prothrombin Time 10.3 sec (9.3-11.8)
[2025-06-12] MEDS ORDERED: HEPARIN DRIP/D5W 100UNITS/ML 250 ML IV SCH (21:30)
[2025-06-12] MEDS: ATORVASTATIN 20 MG TAB PO SCH (21:51)
[2025-06-12] MEDS: INSULIN LANTUS (GLARGINE) 1 /0.01ml (100units/ml) SC SCH (21:55)
[2025-06-13] VITALS (8 sets, daily range): BP systolic 124–147; BP diastolic 62–82; PULSE 65–85; RESP 16–18; TEMP 97.6–98.1; O2SAT 91–97
[2025-06-13 03:42] LABS: Hematocrit 42.3 % (36.0-46.0); Hemoglobin 14.0 g/dL (12.2-16.2); Mean Corpuscular Hemoglobin 27.3 pg (28.0-32.0); Mean Corpuscular Volume 82.5 fL (80.0-100.0)
[2025-06-13 03:53] LABS: Chloride 102 mmol/L (98-107); Potassium 3.9 mmol/L (3.5-5.1)
[2025-06-13 03:54] LABS: Anion Gap 10 (5-15); Calcium 9.0 mg/dL (8.7-10.4); Carbon Dioxide 24 mmol/L (20-31); Sodium 136 mmol/L (136-145)
[2025-06-13 03:56] LABS: INR 0.99 (0.9-1.15); Partial Thromboplastin Time 63.0 SEC (24.5-34.5); Prothrombin Time 10.5 sec (9.3-11.8)
[2025-06-13 03:59] LABS: BUN/Creatinine Ratio 12.0 (10.0-20.0); Blood Urea Nitrogen 10 mg/dL (9-23)
[2025-06-13 04:01] LABS: Glucose 236 mg/dL (74-106)
[2025-06-13 04:55] LABS: Total Cells Counted 100.0 (100)
[2025-06-13] MEDS: ASPirin-EC 81 mg tab PO SCH (09:22)
[2025-06-13] MEDS: FUROSEMIDE 20 MG TAB PO SCH (09:22)
[2025-06-13] MEDS: SACUBITRIL-VALSARTAN 24mg/26mg TAB PO SCH (09:23)
[2025-06-13] MEDS: METOPROLOL SUCCINATE XL 50 MG TAB PO SCH (09:23)
[2025-06-13] MEDS: CLOPIDOGREL BISULFATE 75 MG TAB PO SCH (09:23)
[2025-06-13 10:13] LABS: INR 0.99 (0.9-1.15); Prothrombin Time 10.5 sec (9.3-11.8)
[2025-06-13 10:35] LABS: Partial Thromboplastin Time 71.8 SEC (24.5-34.5)
--- NOTE | 2025-06-13 11:02 | DVHPNRES ---
Progress Note Date Seen: Jun 13, 2025 Resident Creating Document: BOOKER HERRERA RESIDENT Medical Necessity Reason Pt with a Central, PICC or Fol: No Subjective Review of Systems Ms. Curtis is a 65-year-old female prior medical history of PAD status post placement of 3 right lower extremities stents in March 2025, CAD s/p PCI x 1 drug-eluting stent placed in February 2025, DVT, type 2 diabetes mellitus, hypertension, and leukemia for which she is setting up care at [facility], who presented [facility] with chief complaint of left lower extremity pain. The patient states 2-3 weeks ago she began to have left foot pain described as stabbing/ burning, 10/10 intensity, associated with tingling sensation, without aggravating or relieving factors or changes in skin color. She denies fever, vomiting, nausea, shortness breath, chest pain, abdominal pain, palpitations, headaches, and changes in coloration of skin. Patient had 3 stents placed in the right lower extremity in March [address] Etienne, with pending procedure in [place]. due to worsening pain, the patient presented to the emergency room for evaluation. On evaluation in the ED, she is afebrile, normocardiac, slightly hypertensive, saturating adequately on room air. initial labs are significant for elevated WBCs likely due to underlying leukemia, mild hyponatremia, hyperglycemia, and UA significant for UTI. Chest x-ray shows no acute intrathoracic process. CTA abdomen with aortic runoff was ordered and shows occlusion of the left SFA proximally at its origin with reconstitution of the left popliteal artery, long segment moderate grade stenosis of the left popliteal artery approximately 60%, 70% stenosis of the proximal left external iliac artery, 50% diagnosis left EGG CANDLER, right external iliac artery stent, 50% stenosis right EGG CANDLER, distal right SFA 60% stenosis. The patient was started on IV heparin and was admitted for further workup and management. 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 Per her nurse, no overnight events to report. She states she is well, states that pain is about the same numbness in her left great toe which was present before. She is afebrile, normocardic, normotensive, saturating adequately on room air. labs are stable. blood cultures are negative at 48 hours of growth. She is scheduled to go to sleep lab technologist with Dr. Vitale on Sunday. Objective vital signs Vital Sign Date Time Temp Pulse Resp B/P (MAP) Pulse Ox O2 Delivery O2 Flow Rate FiO2 06/13/25 09:23 72 124/68 06/13/25 09:00 97.8 18 97 97.8 06/13/25 08:00 Room Air* 0 21 Total Intake and Output 06/12/25 06/12/25 06/13/25 15:00 23:00 07:00 Intake Total 300 ml 1227 ml 695 ml Output Total 600 ml Balance 300 ml 1227 ml 95 ml medications Current Medications Medications Dose Ordered Sig/Yamilex Route Start Time Stop Time Status Last Admin Dose Admin Diagnostic Test (Pha) 1 strip ACHS 06/11/25 22:00 06/13/25 05:48 1 STRIP Dextrose 50 ml UD PRN IV 06/11/25 17:45 Sodium Chloride 1,000 ml @ 70 mls/hr [id number] IV 06/11/25 17:45 06/12/25 08:03 70 MLS/HR Ondansetron HCl 4 mg Q4HP PRN IV 06/11/25 17:45 Nitroglycerin 0.4 mg Q5MINP PRN SL 06/11/25 17:45 Cefepime HCl 50 ml @ 12.5 mls/hr Q12HR IV 06/11/25 22:00 06/13/25 09:21 12.5 MLS/HR Morphine Sulfate 2 mg Q4HPRN PRN IV 06/12/25 03:15 06/12/25 21:53 2 MG Insulin Glargine 15 units HS SC 06/12/25 22:00 06/12/25 21:55 15 UNITS Insulin Human Lispro 10 units AC SC 06/12/25 17:00 06/13/25 05:49 10 UNITS Furosemide 20 mg DAILY PO 06/13/25 10:00 06/13/25 09:22 20 MG Aspirin 81 mg DAILY PO 06/13/25 10:00 06/13/25 09:22 81 MG Atorvastatin Calcium 80 mg HS PO 06/12/25 22:00 06/12/25 21:51 80 MG Sacubitril/ Valsartan 0.5 tab DAILY PO 06/13/25 10:00 06/13/25 09:23 0.5 TAB Metoprolol Succinate 25 mg DAILY PO 06/13/25 10:00 06/13/25 09:23 25 MG Clopidogrel Bisulfate 75 mg DAILY PO 06/13/25 10:00 06/13/25 09:23 75 MG Heparin Sodium/ Dextrose 250 ml @ 14 mls/hr [id number] IV 06/12/25 21:45 06/12/25 21:56 14 MLS/HR Examination General: The patient alert and oriented in person place and time. Patient following commands HEENT: Normocephalic, atraumatic, normal reactive pupils, EOM intact, pink conjunctiva, pink moist mucous membrane Respiratory/pulmonary: Bilateral chest expansion, no pain on palpation of chest wall, clear lungs bilaterally, vesicular murmurs present in almost all lung cummings, no associated crackles or wheezes. Cardiovascular: Normal RRR, normal S1 and S2, no murmurs Abdomen: Abdomen nondistended, normal bowel sounds, soft, there is no pain to palpation in any of the abdominal quadrants, no palpable masses. Extremities: No deformities, there is no peripheral edema present at the lower extremities, Pulses are decreased in left lower extremity Skin: No rashes or pruritus, there is no sacral edema present at this time. Neurological: Intact cranial nerves with no focal neurologic deficits laboratory and microbiology Laboratory Tests 06/13/25 03:29 Test 06/13/25 03:29 Range/Units Serum Glucose 236 H 74-106 mg/dL Microbiology Date/Time Source Procedure Growth Status 06/11/25 09:42 Blood Blood Culture - Preliminary NO GROWTH AFTER 48 HOURS OF INCUBATION. Resulted Labs and/or images reviewed: Labs reviewed by me, Image(s) reviewed by me Problem List/Assessment/Plan Problem List/Assessment/Plan Assessment and Plan: Peripheral Artery Disease with acute claudication s/p 3 stents in right lower extremity - CTA Abdomen with Aortic Run Off: Occlusion of the left SFA proximally /at its origin with reconstitution of the left popliteal artery. Long segment moderate grade stenosis of the left popliteal artery, approximately 60%. Recommend vascular surgery/ IR consultation. 0% stenosis of the proximal left external iliac artery. 50% stenosis left EGG CANDLER.Right external iliac artery stent. 50% stenosis right EGG CANDLER. Distal right SFA 60% stenosis. Poor opacification of the distal right anterior tibial artery.60% stenosis of the proximal celiac artery. -Heparin drip -Dr. Vitale has been consulted for possible left lower extremity stent placement, patient will go to sleep lab technologist on Sunday CAD status post PCI x1 JOEL - Aspirin 81 mg PO daily - Clopidogrel 75 mg PO daily Acute complicated UTI -Cefepime 1 g IV daily -Urine culture pending -Blood cultures negative at 48 hours of growth Leukemia -Leukocytosis is secondary to leukemia, no sepsis at this time -Vancomycin discontinued Chronic HFrEF, not exacerbated -Echocardiogram: : Entire anterior and apical wall hypokinesis, LVEF is 35% +, moderate degree LVH and moderate degree of LV diastolic dysfunction, moderate degree mitral regurgitation, normal valves, no effusion -Continue GDMT Type 2 diabetes mellitus with hyperglycemia - Lantus 15 U at night - Lispro 10 U before each meal - Accu- cheks Hypertension - Monitor BP - Entresto Tobacco use - I counseled the patient on the importance of complete smoking cessation for over 16 minutes Diet: Cardiac DVT prophylaxis: Patient is on heparin drip GI prophylaxis: Protonix 40 mg PO daily Goals of care discussed with the patient for over 30 minutes. FULL CODE. Case discussed with Dr. Echeverria Plan discussed with: Patient, Other (Nurse) My Orders My Orders Orders - BOOKER HERRERA RESIDENT Procedure Category Date Status Time Urine Bacterial JOCY 06/12/25 Logged Culture 14:02 Insulin Lantus PHA 06/12/25 In Process (Glargine) (Lantus) 22:00 Insulin Lispro PHA 06/12/25 In Process (Human) (Humalog) 17:00 Furosemide Tablet PHA 06/13/25 In Process (Lasix Tablet) 10:00 Aspirin Enteric PHA 06/13/25 In Process Coated Tablet 10:00 Atorvastatin (Lipitor) PHA 06/12/25 In Process 22:00 Sacubitril-Valsartan PHA 06/13/25 In Process (Entresto 24-26 Mg 10:00 Metoprolol Xl PHA 06/13/25 In Process Succinate (Toprol Xl) 10:00 Visit Coding STANDARD RES Billing Provider: NICHOLAS ECHEVERRIA DO Date of Service if different f: Jun 13, 2025 Common Visit Codes: [id number] INP/OBS CARE(MOD) BOOKER HERRERA RESIDENT Jun 13, 2025 11:02 NICHOLAS ECHEVERRIA DO Jun 23, 2025 11:57
[2025-06-13 17:14] LABS: INR 0.99 (0.9-1.15); Prothrombin Time 10.5 sec (9.3-11.8)
[2025-06-13 17:15] LABS: Partial Thromboplastin Time 70.5 SEC (24.5-34.5)
[2025-06-13] MEDS ORDERED: DEXTROSE (50%) 50ML SYRG IV PRN (21:45)
[2025-06-13] MEDS: InsuLIN REG 1unit/0.01ml Soln (100units/ml) SC SCH (21:48)
[2025-06-13] MEDS: ACCU-CHEK COMFORT CURVE STRIP VI SCH (21:49)
[2025-06-14] VITALS (8 sets, daily range): BP systolic 108–127; BP diastolic 51–76; PULSE 62–80; RESP 15–20; TEMP 97.9–98.7; O2SAT 93–100
[2025-06-14 07:13] LABS: Hematocrit 42.9 % (36.0-46.0); Hemoglobin 14.2 g/dL (12.2-16.2); Mean Corpuscular Hemoglobin 26.7 pg (28.0-32.0); Mean Corpuscular Volume 80.9 fL (80.0-100.0)
[2025-06-14 07:20] LABS: Anion Gap 9 (5-15); Carbon Dioxide 28 mmol/L (20-31); Chloride 102 mmol/L (98-107); Potassium 3.9 mmol/L (3.5-5.1); Sodium 139 mmol/L (136-145)
[2025-06-14 07:21] LABS: Calcium 9.3 mg/dL (8.7-10.4)
[2025-06-14 07:27] LABS: BUN/Creatinine Ratio 12.6 (10.0-20.0); Blood Urea Nitrogen 11 mg/dL (9-23)
[2025-06-14 07:29] LABS: INR 0.99 (0.9-1.15); Prothrombin Time 10.5 sec (9.3-11.8)
[2025-06-14 07:30] LABS: Glucose 175 mg/dL (74-106)
[2025-06-14 07:47] LABS: Partial Thromboplastin Time 73.6 SEC (24.5-34.5)
[2025-06-14 08:25] LABS: Total Cells Counted 100.0 (100)
--- NOTE | 2025-06-14 08:40 | CONS ---
Pharmacy Clinical Information: HEPARIN DRIP, DVT PROTOCOL @0607 APTT 73.6 - NO BOLUS / NO CHANGE 4 CONSECUTIVE APTT THERAPEUTIC => APTT EVERY 24 HRS NEXT APTT DRAW SCHEDULED @0500 PER RX PROTOCOL CONFIRMED AND READ BACK WITH DIANE SORIANO [facility] RESIDENT Jun 14, 2025 08:40
--- NOTE | 2025-06-14 10:34 | DVHPNRES ---
Progress Note Date Seen: Jun 14, 2025 Resident Creating Document: ENOCH DIAZ RESIDENT Medical Necessity Reason Pt with a Central, PICC or Fol: No Subjective Review of Systems Ms. Curtis is a 65-year-old female prior medical history of PAD status post placement of 3 right lower extremities stents in March 2025, CAD s/p PCI x 1 drug-eluting stent placed in February 2025, DVT, type 2 diabetes mellitus, hypertension, and leukemia for which she is setting up care at [facility], who presented [facility] with chief complaint of left lower extremity pain. The patient states 2-3 weeks ago she began to have left foot pain described as stabbing/ burning, 10/10 intensity, associated with tingling sensation, without aggravating or relieving factors or changes in skin color. She denies fever, vomiting, nausea, shortness breath, chest pain, abdominal pain, palpitations, headaches, and changes in coloration of skin. Patient had 3 stents placed in the right lower extremity in March [address] Etienne, with pending procedure in [place]. due to worsening pain, the patient presented to the emergency room for evaluation. On evaluation in the ED, she is afebrile, normocardiac, slightly hypertensive, saturating adequately on room air. initial labs are significant for elevated WBCs likely due to underlying leukemia, mild hyponatremia, hyperglycemia, and UA significant for UTI. Chest x-ray shows no acute intrathoracic process. CTA abdomen with aortic runoff was ordered and shows occlusion of the left SFA proximally at its origin with reconstitution of the left popliteal artery, long segment moderate grade stenosis of the left popliteal artery approximately 60%, 70% stenosis of the proximal left external iliac artery, 50% diagnosis left ELECTRONIC EQUIPMENT TRADES WORKER, right external iliac artery stent, 50% stenosis right ELECTRONIC EQUIPMENT TRADES WORKER, distal right SFA 60% stenosis. The patient was started on IV heparin and was admitted for further workup and management. 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 No overnight event, mentioned pain and redness in the right little toe. Scheduled for angiogram of the left lower extremity on Sunday by Dr. Vitale Objective vital signs Vital Sign Date Time Temp Pulse Resp B/P (MAP) Pulse Ox O2 Delivery O2 Flow Rate FiO2 06/14/25 10:07 62 124/69 06/14/25 09:19 20 06/14/25 08:08 98.5 94 98.5 06/13/25 20:00 Room Air* 0 21 Total Intake and Output 06/13/25 06/13/25 06/14/25 15:00 23:00 07:00 Intake Total 800 ml 800 ml 240 ml Output Total 350 ml Balance 800 ml 800 ml -110 ml medications Current Medications Medications Dose Ordered Sig/Yamilex Route Start Time Stop Time Status Last Admin Dose Admin Sodium Chloride 1,000 ml @ 70 mls/hr [id number] IV 06/11/25 17:45 06/13/25 11:21 70 MLS/HR Ondansetron HCl 4 mg Q4HP PRN IV 06/11/25 17:45 Nitroglycerin 0.4 mg Q5MINP PRN SL 06/11/25 17:45 Cefepime HCl 50 ml @ 12.5 mls/hr Q12HR IV 06/11/25 22:00 06/14/25 10:06 12.5 MLS/HR Morphine Sulfate 2 mg Q4HPRN PRN IV 06/12/25 03:15 06/14/25 09:19 2 MG Insulin Glargine 15 units HS SC 06/12/25 22:00 06/13/25 21:47 15 UNITS Insulin Human Lispro 10 units AC SC 06/12/25 17:00 06/14/25 06:04 10 UNITS Furosemide 20 mg DAILY PO 06/13/25 10:00 06/14/25 10:07 20 MG Aspirin 81 mg DAILY PO 06/13/25 10:00 06/14/25 10:07 81 MG Atorvastatin Calcium 80 mg HS PO 06/12/25 22:00 06/13/25 21:49 80 MG Sacubitril/ Valsartan 0.5 tab DAILY PO 06/13/25 10:00 06/14/25 10:06 0.5 TAB Metoprolol Succinate 25 mg DAILY PO 06/13/25 10:00 06/14/25 10:07 25 MG Clopidogrel Bisulfate 75 mg DAILY PO 06/13/25 10:00 06/14/25 10:06 75 MG Heparin Sodium/ Dextrose 250 ml @ 14 mls/hr [id number] IV 06/12/25 21:45 06/14/25 02:16 14 MLS/HR Diagnostic Test (Pha) 1 strip ACHS 06/13/25 22:00 06/14/25 06:05 1 STRIP Insulin Human Regular ACHS SC 06/13/25 22:00 06/13/25 21:48 8 UNITS Dextrose 50 ml UD PRN IV 06/13/25 21:45 Examination Physical examination: General Appearance: Alert, Oriented X3, Cooperative, No acute distress HEENT: Atraumatic, PERRLA, EOMI, Mucous membrane moist/pink Respiratory: Clear to auscultation, Normal air movement Cardiovascular: Regular rate, Normal S1, Normal S2, No murmurs, no chest wall tenderness Abdominal: Normal bowel sounds, Soft, No tenderness, No hepatospenomegaly, No masses Extremities: Decreased pulsation in left lower extremity, No clubbing, No cyanosis, No edema, No tenderness/swelling Skin: No rashes, No breakdown, No significant lesion Neuro: Normal gait, Normal speech, Strength at 5/5 X4 ext, Normal tone, Sensation intact, Cranial nerves 3-12 NL, Reflexes 2+ Psych/Mental Status: Mental status NL, Mood NL laboratory and microbiology Laboratory Tests 06/14/25 06:07 Test 06/14/25 06:07 Range/Units Serum Glucose 175 H 74-106 mg/dL Microbiology Date/Time Source Procedure Growth Status 06/11/25 09:42 Blood Blood Culture - Preliminary NO GROWTH AFTER 72 HOURS OF INCUBATION. Resulted Labs and/or images reviewed: Labs reviewed by me, Image(s) reviewed by me Problem List/Assessment/Plan Problem List/Assessment/Plan Assessment and Plan: Bilateral peripheral Artery Disease with acute claudication s/p 3 stents in right lower extremity - CTA Abdomen with Aortic Run Off: Occlusion of the left SFA proximally /at its origin with reconstitution of the left popliteal artery. Long segment moderate grade stenosis of the left popliteal artery, approximately 60%. Recommend vascular surgery/ IR consultation. 0% stenosis of the proximal left external iliac artery. 50% stenosis left ELECTRONIC EQUIPMENT TRADES WORKER.Right external iliac artery stent. 50% stenosis right ELECTRONIC EQUIPMENT TRADES WORKER. Distal right SFA 60% stenosis. Poor opacification of the distal right anterior tibial artery.60% stenosis of the proximal celiac artery. -Heparin drip -Dr. Vitale has been consulted for possible left lower extremity stent placement, patient will go to slab tripper on Sunday CAD status post PCI x1 JOEL - Aspirin 81 mg PO daily - Clopidogrel 75 mg PO daily Acute complicated UTI -Cefepime 1 g IV daily -Urine culture pending -Blood cultures negative at 48 hours of growth Leukemia -Leukocytosis is secondary to leukemia, no sepsis at this time Chronic HFrEF, not exacerbated -Echocardiogram: : Entire anterior and apical wall hypokinesis, LVEF is 35% +, moderate degree LVH and moderate degree of LV diastolic dysfunction, moderate degree mitral regurgitation, normal valves, no effusion -Continue GDMT Type 2 diabetes mellitus with hyperglycemia - Lantus 15 U at night - Lispro 10 U before each meal - Accu- cheks Hypertension - Monitor BP - Entresto Tobacco use - I counseled the patient on the importance of complete smoking cessation for over 16 minutes Diet: Cardiac DVT prophylaxis: Patient is on heparin drip GI prophylaxis: Protonix 40 mg PO daily Goals of care discussed with the patient for over 30 minutes. FULL CODE. Case discussed with Dr. Echeverria Plan discussed with: Patient, Other (RN) Visit Coding STANDARD RES Billing Provider: NICHOLAS ECHEVERRIA DO Date of Service if different f: Jun 14, 2025 Common Visit Codes: [id number] INP/OBS CARE(MOD) Secondary Visit Codes: [id number] CARE PLAN 30 MINUTES ENOCH DIAZ RESIDENT Jun 14, 2025 10:34 NICHOLAS ECHEVERRIA DO Jun 23, 2025 11:57
[2025-06-15] VITALS (8 sets, daily range): BP systolic 113–150; BP diastolic 62–80; PULSE 18–86; RESP 16–18; TEMP 97.8–98.6; O2SAT 91–98
[2025-06-15 06:31] LABS: Hematocrit 45.3 % (36.0-46.0); Hemoglobin 14.9 g/dL (12.2-16.2); Mean Corpuscular Hemoglobin 26.9 pg (28.0-32.0); Mean Corpuscular Volume 82.0 fL (80.0-100.0)
[2025-06-15 06:52] LABS: INR 1.01 (0.9-1.15); Prothrombin Time 10.7 sec (9.3-11.8)
[2025-06-15 07:05] LABS: Total Cells Counted 100.0 (100)
[2025-06-15 07:09] LABS: Partial Thromboplastin Time 91.3 SEC (24.5-34.5)
--- NOTE | 2025-06-15 08:26 | CONS ---
Pharmacy Clinical Information: HEPARIN DRIP, DVT PROTOCOL @0536 APTT 91.3 - NO BOLUS / HOLD HEPARIN DRIP FOR 1 HOUR AND RESTART HEPARIN DRIP AT RATE 1100 UNITS/HR NEXT APTT DRAW SCHEDULED @1500 PER RX PROTOCOL CONFIRMED AND READ BACK WITH RN DIANE HSIEH [facility] RESIDENT Jun 15, 2025 08:26
[2025-06-15] MEDS: HEPARIN DRIP/D5W 100UNITS/ML 250 ML IV SCH (08:59)
[2025-06-15 10:20] LABS: Hepatitis B Surface Antigen Negative (Negative)
--- NOTE | 2025-06-15 13:39 | CONS ---
Pharmacy Clinical Information: From Heart Failure Fallout Report on CQM Application, Colleen Curtis is a 65-year-old female with HFrEF, PAD status post placement of 3 right lower extremities stents in March 2025, CAD s/p PCI x 1 drug-eluting stent placed in February 2025, DVT, type 2 diabetes mellitus, hypertension, and leukemia Her home medications for CHF include spironolactone, sacubitril-valsartan, empagliflozin, and metoprolol succinate Her inpatient medications for CHF include sacubitril-valsartan, and metoprolol succinate For optimal heart failure GDMT, please consider resuming 2 additional patients home medications - Continue spironolactone as the mineralocorticoid receptor antagonist and empagliflozin as the SGLT2 inhibitor. Monitor blood pressure, heart rate, renal function, electrolytes, and titrate doses toward guideline-recommended targets. [facility]WFORD [facility] Jun 15, 2025 13:39
--- NOTE | 2025-06-15 16:00 | DVHPNRES ---
Progress Note Date Seen: Jun 15, 2025 Resident Creating Document: BOOKER HERRERA RESIDENT Medical Necessity Reason Pt with a Central, PICC or Fol: No Subjective Review of Systems Ms. Curtis is a 65-year-old female prior medical history of PAD status post placement of 3 right lower extremities stents in March 2025, CAD s/p PCI x 1 drug-eluting stent placed in February 2025, DVT, type 2 diabetes mellitus, hypertension, and leukemia for which she is setting up care at [facility], who presented [facility] with chief complaint of left lower extremity pain. The patient states 2-3 weeks ago she began to have left foot pain described as stabbing/ burning, 10/10 intensity, associated with tingling sensation, without aggravating or relieving factors or changes in skin color. She denies fever, vomiting, nausea, shortness breath, chest pain, abdominal pain, palpitations, headaches, and changes in coloration of skin. Patient had 3 stents placed in the right lower extremity in March [address] Etienne, with pending procedure in [place]. due to worsening pain, the patient presented to the emergency room for evaluation. On evaluation in the ED, she is afebrile, normocardiac, slightly hypertensive, saturating adequately on room air. initial labs are significant for elevated WBCs likely due to underlying leukemia, mild hyponatremia, hyperglycemia, and UA significant for UTI. Chest x-ray shows no acute intrathoracic process. CTA abdomen with aortic runoff was ordered and shows occlusion of the left SFA proximally at its origin with reconstitution of the left popliteal artery, long segment moderate grade stenosis of the left popliteal artery approximately 60%, 70% stenosis of the proximal left external iliac artery, 50% diagnosis left COST ESTIMATOR, right external iliac artery stent, 50% stenosis right COST ESTIMATOR, distal right SFA 60% stenosis. The patient was started on IV heparin and was admitted for further workup and management. 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 She is well, states that numbness persists. She denies any lower extremity pain, worsening numbness, changes in skin coloration, chest pain, palpitations, shortness of breath, and headache. She is afebrile, normocardic, normotensive, saturating adequately on room air. She will go to laboratory clerk today. Possible discharge tomorrow. Objective vital signs Vital Sign Date Time Temp Pulse Resp B/P (MAP) Pulse Ox O2 Delivery O2 Flow Rate FiO2 06/15/25 12:35 98.3 81 16 113/62 (79) 94 98.3 06/15/25 08:00 Room Air* 0 21 Total Intake and Output 06/14/25 06/14/25 06/15/25 15:00 23:00 07:00 Intake Total 680 ml 550 ml Output Total 1000 ml Balance -320 ml 550 ml medications Current Medications Medications Dose Ordered Sig/Yamilex Route Start Time Stop Time Status Last Admin Dose Admin Sodium Chloride 1,000 ml @ 70 mls/hr [id number] IV 06/11/25 17:45 06/15/25 05:33 70 MLS/HR Ondansetron HCl 4 mg Q4HP PRN IV 06/11/25 17:45 Nitroglycerin 0.4 mg Q5MINP PRN SL 06/11/25 17:45 Cefepime HCl 50 ml @ 12.5 mls/hr Q12HR IV 06/11/25 22:00 06/15/25 09:37 12.5 MLS/HR Morphine Sulfate 2 mg Q4HPRN PRN IV 06/12/25 03:15 06/14/25 22:00 2 MG Insulin Glargine 15 units HS SC 06/12/25 22:00 06/14/25 21:56 15 UNITS Insulin Human Lispro 10 units AC SC 06/12/25 17:00 06/14/25 17:00 10 UNITS Furosemide 20 mg DAILY PO 06/13/25 10:00 06/15/25 09:36 20 MG Aspirin 81 mg DAILY PO 06/13/25 10:00 06/15/25 09:35 81 MG Atorvastatin Calcium 80 mg HS PO 06/12/25 22:00 06/14/25 21:57 80 MG Sacubitril/ Valsartan 0.5 tab DAILY PO 06/13/25 10:00 06/15/25 09:35 0.5 TAB Metoprolol Succinate 25 mg DAILY PO 06/13/25 10:00 06/15/25 09:37 25 MG Clopidogrel Bisulfate 75 mg DAILY PO 06/13/25 10:00 06/15/25 09:36 75 MG Diagnostic Test (Pha) 1 strip ACHS 06/13/25 22:00 06/15/25 06:08 1 STRIP Insulin Human Regular ACHS SC 06/13/25 22:00 06/14/25 21:55 6 UNITS Dextrose 50 ml UD PRN IV 06/13/25 21:45 Heparin Sodium/ Dextrose 250 ml @ 11 mls/hr [id number] IV 06/15/25 08:40 06/15/25 08:59 11 MLS/HR Examination General: The patient alert and oriented in person place and time. Patient following commands HEENT: Normocephalic, atraumatic, normal reactive pupils, EOM intact, pink conjunctiva, pink moist mucous membrane Respiratory/pulmonary: Bilateral chest expansion, no pain on palpation of chest wall, clear lungs bilaterally, vesicular murmurs present in almost all lung cummings, no associated crackles or wheezes. Cardiovascular: Normal RRR, normal S1 and S2, no murmurs Abdomen: Abdomen nondistended, normal bowel sounds, soft, there is no pain to palpation in any of the abdominal quadrants, no palpable masses. Extremities: No deformities, there is no peripheral edema present at the lower extremities, Pulses are decreased in left lower extremity Skin: No rashes or pruritus, there is no sacral edema present at this time. Neurological: Intact cranial nerves with no focal neurologic deficits laboratory and microbiology Laboratory Tests 06/15/25 05:36 06/14/25 06:07 Test 06/14/25 06:07 Range/Units Serum Glucose 175 H 74-106 mg/dL Microbiology Date/Time Source Procedure Growth Status 06/11/25 09:42 Blood Blood Culture - Preliminary NO GROWTH AFTER 72 HOURS OF INCUBATION. Resulted Problem List/Assessment/Plan Problem List/Assessment/Plan Assessment and Plan: Peripheral Artery Disease with acute claudication s/p 3 stents in right lower extremity - CTA Abdomen with Aortic Run Off: Occlusion of the left SFA proximally /at its origin with reconstitution of the left popliteal artery. Long segment moderate grade stenosis of the left popliteal artery, approximately 60%. Recommend vascular surgery/ IR consultation. 0% stenosis of the proximal left external iliac artery. 50% stenosis left COST ESTIMATOR.Right external iliac artery stent. 50% stenosis right COST ESTIMATOR. Distal right SFA 60% stenosis. Poor opacification of the distal right anterior tibial artery.60% stenosis of the proximal celiac artery. -Heparin drip -Dr. Vitale has been consulted for possible left lower extremity stent placement, will go to laboratory clerk today CAD status post PCI x1 JOEL - Aspirin 81 mg PO daily - Clopidogrel 75 mg PO daily Acute complicated UTI -Cefepime 1 g IV daily -Urine culture pending -Blood cultures negative at 48 hours of growth Leukemia -Leukocytosis is secondary to leukemia, no sepsis at this time -Vancomycin discontinued Chronic HFrEF, not exacerbated -Echocardiogram: : Entire anterior and apical wall hypokinesis, LVEF is 35% +, moderate degree LVH and moderate degree of LV diastolic dysfunction, moderate degree mitral regurgitation, normal valves, no effusion -Continue GDMT Type 2 diabetes mellitus with hyperglycemia - Lantus 15 U at night - Lispro 10 U before each meal - Accu- cheks Hypertension - Monitor BP - Entresto Tobacco use - I counseled the patient on the importance of complete smoking cessation for over 16 minutes Diet: Cardiac DVT prophylaxis: Patient is on heparin drip GI prophylaxis: Protonix 40 mg PO daily Goals of care discussed with the patient for over 26 minutes. FULL CODE. Case discussed with Dr. Mazariegos Plan discussed with: Patient, Other (Nurse) Visit Coding STANDARD RES Billing Provider: ANTONIO MAZARIEGOS MD Date of Service if different f: Jun 15, 2025 Common Visit Codes: [id number] INP/OBS CARE(HIGH) BOOKER HERRERA RESIDENT Jun 15, 2025 16:00 ANTONIO MAZARIEGOS MD Jun 22, 2025 10:35
[2025-06-15 17:03] LABS: INR 1.03 (0.9-1.15); Partial Thromboplastin Time 53.1 SEC (24.5-34.5); Prothrombin Time 10.9 sec (9.3-11.8)
--- NOTE | 2025-06-15 17:08 | DVHPN2 ---
Progress Note - Dictate Date Seen: Jun 15, 2025 Medical Necessity Reason Pt with a Central, PICC or Fol: No Subjective PT WITH EXTENSIVE HX OF PAD HX OF STENT PLACEMENT CAD HX OF PTCA STENT NEEDS FURTHER STAGED INTERVENTION DIABETES VASCULOPATHY NEPHROPATHY HX OF DVT NOW WITH LE PAIN LEUCOCYTOSIS vital signs Vital Sign Date Time Temp Pulse Resp B/P (MAP) Pulse Ox O2 Delivery O2 Flow Rate FiO2 06/15/25 12:35 98.3 81 16 113/62 (79) 94 98.3 06/15/25 08:00 Room Air* 0 21 Total Intake and Output 06/14/25 06/14/25 06/15/25 15:00 23:00 07:00 Intake Total 680 ml 550 ml Output Total 1000 ml Balance -320 ml 550 ml medications Current Medications Medications Dose Ordered Sig/Yamilex Route Start Time Stop Time Status Last Admin Dose Admin Sodium Chloride 1,000 ml @ 70 mls/hr [id number] IV 06/11/25 17:45 06/15/25 05:33 70 MLS/HR Ondansetron HCl 4 mg Q4HP PRN IV 06/11/25 17:45 Nitroglycerin 0.4 mg Q5MINP PRN SL 06/11/25 17:45 Cefepime HCl 50 ml @ 12.5 mls/hr Q12HR IV 06/11/25 22:00 06/15/25 09:37 12.5 MLS/HR Morphine Sulfate 2 mg Q4HPRN PRN IV 06/12/25 03:15 06/14/25 22:00 2 MG Insulin Glargine 15 units HS SC 06/12/25 22:00 06/14/25 21:56 15 UNITS Insulin Human Lispro 10 units AC SC 06/12/25 17:00 06/14/25 17:00 10 UNITS Furosemide 20 mg DAILY PO 06/13/25 10:00 06/15/25 09:36 20 MG Aspirin 81 mg DAILY PO 06/13/25 10:00 06/15/25 09:35 81 MG Atorvastatin Calcium 80 mg HS PO 06/12/25 22:00 06/14/25 21:57 80 MG Sacubitril/ Valsartan 0.5 tab DAILY PO 06/13/25 10:00 06/15/25 09:35 0.5 TAB Metoprolol Succinate 25 mg DAILY PO 06/13/25 10:00 06/15/25 09:37 25 MG Clopidogrel Bisulfate 75 mg DAILY PO 06/13/25 10:00 06/15/25 09:36 75 MG Diagnostic Test (Pha) 1 strip ACHS 06/13/25 22:00 06/15/25 06:08 1 STRIP Insulin Human Regular ACHS SC 06/13/25 22:00 06/14/25 21:55 6 UNITS Dextrose 50 ml UD PRN IV 06/13/25 21:45 Heparin Sodium/ Dextrose 250 ml @ 11 mls/hr [id number] IV 06/15/25 08:40 06/15/25 08:59 11 MLS/HR laboratory and microbiology Laboratory Tests 06/15/25 05:36 06/14/25 06:07 Test 06/14/25 06:07 Range/Units Serum Glucose 175 H 74-106 mg/dL Problem List EXTENSIVE HX OF PAD HX OF STENT PLACEMENT CAD HX OF PTCA STENT NEEDS FURTHER STAGED INTERVENTION DIABETES VASCULOPATHY NEPHROPATHY HX OF DVT NOW WITH LE PAIN LEUCOCYTOSIS Assessment/Plan PT WITH PROGRESSIVE SC OF CLAUDICATION CTA OF LE Occlusion of the left SFA proximally /at its origin with reconstitution of the left popliteal artery. Long segment moderate grade stenosis of the left popliteal artery, approximately 60%. Recommend vascular surgery/ IR consultation. 70% stenosis of the proximal left external iliac artery. 50% stenosis left LEATHER GOODS SALES REPRESENTATIVE. Right external iliac artery stent. 50% stenosis right LEATHER GOODS SALES REPRESENTATIVE. Distal right SFA 60% stenosis. Poor opacification of the distal right anterior tibial artery. 60% stenosis of the proximal celiac artery. DAPT CONSIDER LE ANGION ANGIO 06/16/25 Plan discussed with: Patient TIKA RODRIGUES MD Jun 15, 2025 17:08
--- NOTE | 2025-06-15 17:16 | CONS ---
Pharmacy Clinical Information: HEPARIN DRIP, DVT PROTOCOL @1784 APTT 53.1 - NO BOLUS / NO CHANGE NEXT APTT DRAW SCHEDULED @2230 PER RX PROTOCOL CONFIRMED AND READ BACK WITH RN DIANE [facility] RESIDENT Jun 15, 2025 17:16
[2025-06-15 23:29] LABS: INR 1.01 (0.9-1.15); Partial Thromboplastin Time 39.7 SEC (24.5-34.5); Prothrombin Time 10.7 sec (9.3-11.8)
[2025-06-16] VITALS (12 sets, daily range): BP systolic 109–134; BP diastolic 28–80; PULSE 65–92; RESP 14–22; TEMP 97.9–98.7; O2SAT 90–100
[2025-06-16] MEDS: HYDROmorphone HCL 2 MG/ML VL/or syr IV ONE (00:08)
[2025-06-16] MEDS: HEPARIN DRIP/D5W 100UNITS/ML 250 ML IV SCH ×2 (00:50→08:39)
[2025-06-16 06:23] LABS: Hematocrit 42.9 % (36.0-46.0); Hemoglobin 14.1 g/dL (12.2-16.2); Mean Corpuscular Hemoglobin 27.1 pg (28.0-32.0); Mean Corpuscular Volume 82.2 fL (80.0-100.0)
[2025-06-16 06:42] LABS: Anion Gap 8 (5-15); Carbon Dioxide 30 mmol/L (20-31); Chloride 101 mmol/L (98-107); Potassium 4.9 mmol/L (3.5-5.1); Sodium 139 mmol/L (136-145)
[2025-06-16 06:43] LABS: Calcium 9.7 mg/dL (8.7-10.4)
[2025-06-16 06:48] LABS: BUN/Creatinine Ratio 16.1 (10.0-20.0); Blood Urea Nitrogen 14 mg/dL (9-23)
[2025-06-16 06:50] LABS: Glucose 207 mg/dL (74-106)
[2025-06-16 07:07] LABS: Total Cells Counted 100.0 (100)
[2025-06-16 07:30] LABS: INR 1.01 (0.9-1.15); Partial Thromboplastin Time 43.8 SEC (24.5-34.5); Prothrombin Time 10.7 sec (9.3-11.8)
--- NOTE | 2025-06-16 08:39 | CONS ---
Pharmacy Clinical Information: HEPARIN DRIP, DVT PROTOCOL @0509 APTT 43.8 - NO BOLUS / INCREASE RATE BY 200 UNITS/HR, NEW RATE 1500 UNITS/HR STARTING @0845 NEXT APTT DRAW SCHEDULED @1445 PER RX PROTOCOL CONFIRMED AND READ BACK WITH TRAC[facility] CRAWFORD[facility] Jun 16, 2025 08:39
[2025-06-16] MEDS: IODIXANOL 320MG/ML 100ML BTL IV ONE (12:21)
[2025-06-16] MEDS: LIDOCAINE 2%HCL (LOCAL ANESTH.) INJ 20ML MDV ONE (12:21)
[2025-06-16] MEDS: IOHEXOL 350 MG/ML 100ML IJ ONE ×2 (12:24→13:39)
[2025-06-16] MEDS: ANGIOMAX 250 MG VIAL IV ONE ×2 (12:50→14:01)
[2025-06-16] MEDS: SODIUM CHL 0.9% 0 ML ONE (12:51)
[2025-06-16] MEDS: fentaNYL CITRATE 100 MCG/2 ML VL ONE (12:51)
[2025-06-16] MEDS: MIDAZOLAM HCL 2MG/2ML 2ml VIAL (1mg/ml) ONE (12:51)
[2025-06-16] MEDS: SODIUM CHL 0.9% 50 ML ONE (14:01)
[2025-06-16] MEDS: CLOPIDOGREL BISULFATE 75 MG TAB ONE (14:13)
--- NOTE | 2025-06-16 14:49 | DVHOP ---
DATE OF SURGERY: 06/16/2025 DATE OF SURGERY: 06/16/2025 PROCEDURES PERFORMED: 1. Selective left and right lower extremity angiography. 2. Thrombectomy of the left superficial femoral artery. 3. Angioplasty of the left superficial femoral artery. 4. Conscious sedation was given. DESCRIPTION OF PROCEDURE: The patient was prepped and draped in the sterile condition. Xylocaine 1% was used to anesthetize the right groin. Using a Cook needle, a right femoral artery was engaged with a Seldinger technique and a 6-Rwandan sheath in the right femoral artery. Using a 6-Rwandan sheath, angiography of the right lower extremity was performed. Then, using the contralateral approach, using a RIM catheter and angled Terumo wire, we were able to get into the left lower extremity. Then, angiography of the left lower extremity was performed. Then, the 6-Rwandan short sheath was exchanged for a 6-Rwandan long sheath. A 45 cm was placed in the distal aspect of the common femoral artery. Using a 0.018 gold wire, we were able to cross the totally occluded SFA. It was then balloon angioplastied using a 4.0 x 80 mm Kirby balloon. Entire length of the SFA from the popliteal to the origin ostium of the SFA. Following the dilatation, thrombectomy catheter was used. Shockwave device was used; a 5 mm x 60 mm shockwave device was used to thrombectomize the entire length of the SFA, from the distal SFA proximal popliteal to the ostial SFA. Following that, there was complete revascularization of the artery with minimal narrowing. At this time, the patient had complete revascularization with three-vessel distal runoff. There were no complications. The patient tolerated the procedure well. The patient received 300 mcg of intraarterial nitroglycerin. The patient will be maintained on Plavix for at least a year, and the patient should be maintained on dual antiplatelet therapy. Again, cessation of smoking is also important. RESULTS: 1. Right lower extremity angiography revealed: 1. Patent right iliac with stent noted. It was patent with no gradient across the stent. 2. Patent common femoral. 3. Patent profunda. 4. Patent superficial femoral artery with three-vessel distal runoff anterior tibial, posterior tibial, and the peroneal. 2. The left lower extremity angiography revealed: 1. Patent left common iliac. 2. Patent left common femoral. 3. Patent profunda, but the origin of the SFA was occluded, reconstitutes at the level of the popliteal just above the knee. The entire length was then thrombectomized and angioplastied with now complete revascularization of the left lower extremity with less than 10% residual stenosis with three-vessel distal runoff anterior tibial, peroneal, and the posterior tibial. CONCLUSION: At this time, the patient is completely revascularized in both lower extremities. Conservative medical management, aggressive risk modification should be implemented. We will continue to follow the patient. Iam Benz MD SA/MARILYN TID: [id number] RECEIPT: [id number]
--- NOTE | 2025-06-16 16:38 | DVHPNRES ---
Progress Note Date Seen: Jun 16, 2025 Resident Creating Document: BOOKER HERRERA RESIDENT Medical Necessity Reason Pt with a Central, PICC or Fol: No Subjective Review of Systems Ms. Curtis is a 65-year-old female prior medical history of PAD status post placement of 3 right lower extremities stents in March 2025, CAD s/p PCI x 1 drug-eluting stent placed in February 2025, DVT, type 2 diabetes mellitus, hypertension, and leukemia for which she is setting up care at [facility], who presented [facility] with chief complaint of left lower extremity pain. The patient states 2-3 weeks ago she began to have left foot pain described as stabbing/ burning, 10/10 intensity, associated with tingling sensation, without aggravating or relieving factors or changes in skin color. She denies fever, vomiting, nausea, shortness breath, chest pain, abdominal pain, palpitations, headaches, and changes in coloration of skin. Patient had 3 stents placed in the right lower extremity in March [address] Etienne, with pending procedure in [place]. due to worsening pain, the patient presented to the emergency room for evaluation. On evaluation in the ED, she is afebrile, normocardiac, slightly hypertensive, saturating adequately on room air. initial labs are significant for elevated WBCs likely due to underlying leukemia, mild hyponatremia, hyperglycemia, and UA significant for UTI. Chest x-ray shows no acute intrathoracic process. CTA abdomen with aortic runoff was ordered and shows occlusion of the left SFA proximally at its origin with reconstitution of the left popliteal artery, long segment moderate grade stenosis of the left popliteal artery approximately 60%, 70% stenosis of the proximal left external iliac artery, 50% diagnosis left BARK SKINNER, right external iliac artery stent, 50% stenosis right BARK SKINNER, distal right SFA 60% stenosis. The patient was started on IV heparin and was admitted for further workup and management. 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 She is well, continues to complain of numbness in her left toe. She is afebrile, normocardic, normotensive, saturating adequately on room air. The patient will go to the ballistics laboratory [facility] today with Dr. Vitale. Objective vital signs Vital Sign Date Time Temp Pulse Resp B/P (MAP) Pulse Ox O2 Delivery O2 Flow Rate FiO2 06/16/25 12:51 122/68 06/16/25 12:47 98.4 65 22 100 98.4 06/16/25 08:00 Room Air* 0 21 Total Intake and Output 06/15/25 06/15/25 06/16/25 15:00 23:00 07:00 Intake Total 350 ml 200 ml Balance 350 ml 200 ml medications Current Medications Medications Dose Ordered Sig/Yamilex Route Start Time Stop Time Status Last Admin Dose Admin Sodium Chloride 1,000 ml @ 70 mls/hr [id number] IV 06/11/25 17:45 06/16/25 11:18 70 MLS/HR Ondansetron HCl 4 mg Q4HP PRN IV 06/11/25 17:45 Nitroglycerin 0.4 mg Q5MINP PRN SL 06/11/25 17:45 Cefepime HCl 50 ml @ 12.5 mls/hr Q12HR IV 06/11/25 22:00 06/16/25 09:04 12.5 MLS/HR Morphine Sulfate 2 mg Q4HPRN PRN IV 06/12/25 03:15 06/14/25 22:00 2 MG Insulin Glargine 15 units HS SC 06/12/25 22:00 06/15/25 21:45 15 UNITS Insulin Human Lispro 10 units AC SC 06/12/25 17:00 06/16/25 06:49 10 UNITS Furosemide 20 mg DAILY PO 06/13/25 10:00 06/16/25 09:05 20 MG Aspirin 81 mg DAILY PO 06/13/25 10:00 06/16/25 09:04 81 MG Atorvastatin Calcium 80 mg HS PO 06/12/25 22:00 06/15/25 21:33 80 MG Sacubitril/ Valsartan 0.5 tab DAILY PO 06/13/25 10:00 06/16/25 09:04 0.5 TAB Metoprolol Succinate 25 mg DAILY PO 06/13/25 10:00 06/16/25 09:06 25 MG Clopidogrel Bisulfate 75 mg DAILY PO 06/13/25 10:00 06/16/25 09:05 75 MG Diagnostic Test (Pha) 1 strip ACHS 06/13/25 22:00 06/16/25 16:33 1 STRIP Insulin Human Regular ACHS SC 06/13/25 22:00 06/16/25 06:48 4 UNITS Dextrose 50 ml UD PRN IV 06/13/25 21:45 Examination General: The patient alert and oriented in person place and time. Patient following commands HEENT: Normocephalic, atraumatic, normal reactive pupils, EOM intact, pink conjunctiva, pink moist mucous membrane Respiratory/pulmonary: Bilateral chest expansion, no pain on palpation of chest wall, clear lungs bilaterally, vesicular murmurs present in almost all lung cummings, no associated crackles or wheezes. Cardiovascular: Normal RRR, normal S1 and S2, no murmurs Abdomen: Abdomen nondistended, normal bowel sounds, soft, there is no pain to palpation in any of the abdominal quadrants, no palpable masses. Extremities: No deformities, there is no peripheral edema present at the lower extremities, Pulses are decreased in left lower extremity Skin: No rashes or pruritus, there is no sacral edema present at this time. Neurological: Intact cranial nerves with no focal neurologic deficits laboratory and microbiology Laboratory Tests 06/16/25 05:04 Test 06/16/25 05:04 Range/Units Serum Glucose 207 H 74-106 mg/dL Microbiology Date/Time Source Procedure Growth Status 06/11/25 09:42 Blood Blood Culture - Final NO GROWTH AFTER 5 DAYS OF INCUBATION. Complete Problem List/Assessment/Plan Problem List/Assessment/Plan Assessment and Plan: Peripheral Artery Disease with acute claudication s/p 3 stents in right lower extremity - CTA Abdomen with Aortic Run Off: Occlusion of the left SFA proximally /at its origin with reconstitution of the left popliteal artery. Long segment moderate grade stenosis of the left popliteal artery, approximately 60%. Recommend vascular surgery/ IR consultation. 0% stenosis of the proximal left external iliac artery. 50% stenosis left BARK SKINNER.Right external iliac artery stent. 50% stenosis right BARK SKINNER. Distal right SFA 60% stenosis. Poor opacification of the distal right anterior tibial artery.60% stenosis of the proximal celiac artery. -Heparin drip -Dr. Vitale has been consulted for possible left lower extremity stent placement, will go to ballistics laboratory [facility] today CAD status post PCI x1 JOEL - Aspirin 81 mg PO daily - Clopidogrel 75 mg PO daily Acute complicated UTI -Cefepime 1 g IV daily -Urine culture pending -Blood cultures negative at 5 days of growth Leukemia -Leukocytosis is secondary to leukemia, no sepsis at this time -Vancomycin discontinued Chronic HFrEF, not exacerbated -Echocardiogram: : Entire anterior and apical wall hypokinesis, LVEF is 35% +, moderate degree LVH and moderate degree of LV diastolic dysfunction, moderate degree mitral regurgitation, normal valves, no effusion -Continue GDMT Type 2 diabetes mellitus with hyperglycemia - Lantus 15 U at night - Lispro 10 U before each meal - Accu- cheks Hypertension - Monitor BP - Entresto Tobacco use - I counseled the patient on the importance of complete smoking cessation for over 16 minutes Diet: Cardiac DVT prophylaxis: Patient is on heparin drip GI prophylaxis: Protonix 40 mg PO daily Goals of care discussed with the patient for over 30 minutes. FULL CODE. Case discussed with Dr. Mazariegos Plan discussed with: Patient, Other Visit Coding STANDARD RES Billing Provider: ANTONIO MAZARIEGOS MD Date of Service if different f: Jun 16, 2025 Common Visit Codes: 00139-TSTITAAMKL INP/OBS CARE(HIGH) BOOKER HERRERA RESIDENT Jun 16, 2025 16:38 ANTONIO MAZARIEGOS MD Jun 23, 2025 15:44
[2025-06-17] MEDS: ACETAMINOPHEN 325 MG TAB PO ONE (03:47)
[2025-06-17 04:58] VITALS: BP 124/71; PULSE 77; RESP 17; TEMP 98.2; O2SAT 98
[2025-06-17] MEDS: KETOROLAC TROMETH 30 MG/ML 1ML VIAL IV ONE (06:24)
[2025-06-17 08:00] VITALS: PULSE 73
[2025-06-17 08:56] VITALS: BP 102/59; PULSE 92; RESP 20; TEMP 98.7; O2SAT 98
[2025-06-17] MEDS ORDERED: CLOP75TA28 PO (11:56)
[2025-06-17] MEDS ORDERED: INSUINJ37 SC (11:56)
[2025-06-17] MEDS ORDERED: METO25TA93 PO (11:56)
[2025-06-17] MEDS ORDERED: FURO1TAB33 PO (11:56)
[2025-06-17] MEDS ORDERED: ATOR-47 PO (11:56)
[2025-06-17] MEDS ORDERED: SACU1TAB PO (11:56)
[2025-06-17] MEDS ORDERED: ASPI81CH59 PO (11:56)
[2025-06-17] MEDS ORDERED: INSU100I4 SC (11:56)
[2025-06-17 12:25] VITALS: BP 128/60; PULSE 72; RESP 18; TEMP 98.7; O2SAT 92
--- NOTE | 2025-06-17 15:44 | DVHDSRES ---
Discharge Summary Date of Admission Resident Creating Document: ENOCH DIAZ RESIDENT Jun 11, 2025 at 10:53 Date of Discharge: Jun 17, 2025 Admitting Diagnosis Peripheral Artery Disease with acute claudication in left lower extremity Wounds: No open wound was present Labs/Diagnostic Data: Laboratory Results Test 06/17/25 05:57 06/16/25 05:04 06/12/25 14:46 06/12/25 05:30 POC Glucose 233 mg/dl (70-106) White Blood Count 23.7 10^3/uL (4.4-10.8) Red Blood Count 5.22 10^6/uL (4.0-5.20) Hemoglobin 14.1 g/dL (12.2-16.2) Hematocrit 42.9 % (36.0-46.0) Mean Corpuscular Volume 82.2 fL (80.0-100.0) Mean Corpuscular Hemoglobin 27.1 pg (28.0-32.0) Mean Corpuscular Hemoglobin Concent 33.0 g/dL (32.0-36.0) Red Cell Distribution Width 16.5 % (11.8-14.3) Platelet Count 321 10^3/uL (140-450) Mean Platelet Volume 7.8 fL (6.9-10.8) Neutrophils (%) (Auto) % (37.0-80.0) Lymphocytes (%) (Auto) % (10.0-50.0) Monocytes (%) (Auto) % (0.0-12.0) Basophils (%) (Auto) % (0.0-2.0) Neutrophils # (Auto) 10 ^3/uL (1.6-8.6) Lymphocytes # (Auto) 10 ^3/uL (0.4-5.4) Monocytes # (Auto) 10 ^3/uL (0-1.3) Differential Total Cells Counted 100.0 (100) Neutrophils % (Manual) 19 (37.0-80.0) Band Neutrophils % (Manual) 0 Lymphocytes % (Manual) 77 (10.0-50.0) Monocytes % (Manual) 3 (0-12) Eosinophils % (Manual) 1 (0-7) Basophils % (Manual) 0 (0.0-2.0) Metamyelocytes % (manual) 0 Myelocytes % (Manual) 0 Promyelocytes % (Manual) 0 Blast Cells % (Manual) 0 Reactive Lymphocytes 0 Platelet Estimate Adequate Prothrombin Time 10.7 sec (9.3-11.8) Prothrombin Time INR 1.01 (0.9-1.15) Activated Partial Thromboplast Time 43.8 SEC (24.5-34.5) Sodium Level 139 mmol/L (136-145) Potassium Level 4.9 mmol/L (3.5-5.1) Chloride Level 101 mmol/L (98-107) Carbon Dioxide Level 30 mmol/L (20-31) Anion Gap 8 (5-15) Blood Urea Nitrogen 14 mg/dL (9-23) Creatinine 0.87 mg/dL (0.550-1.02) Glomerular Filtration Rate Calc 74 mL/min (>90) BUN/Creatinine Ratio 16.1 (10.0-20.0) Serum Glucose 207 mg/dL (74-106) Calcium Level 9.7 mg/dL (8.7-10.4) Hepatitis B Surface Antigen Negative (Negative) Hepatitis B Surface Antibody Negative (Negative) Hepatitis C Antibody Negative (Negative) HIV (1&2) Antibody Negative (Negative) Smudge Cells 4 /100 WBC Total Bilirubin 0.4 mg/dL (0.2-1.0) Aspartate Amino Transferase (AST) 18 U/L (13-40) Alanine Aminotransferase (ALT) 14 U/L (7-40) Alkaline Phosphatase 178 U/L (46-116) Total Protein 6.2 g/dL (5.7-8.2) Albumin 4.0 g/dL (3.2-4.8) Test 06/11/25 18:06 06/11/25 11:48 06/11/25 10:49 06/11/25 06:46 Anisocytosis (manual) Slight Lactic Acid Level 1.3 mmol/L (0.4-2.0) Urine Color Yellow (Yellow) Urine Clarity Turbid (Clear) Urine pH 5.5 (5.0-9.0) Urine Specific [place] 1.027 (1.001-1.035) Urine Protein 1+ (Negative) Urine Ketones Trace (Negative) Urine Blood 1+ /uL (Negative) Urine Nitrite Negative (Negative) Urine Bilirubin Negative (Negative) Urine Urobilinogen Normal mg/dL (Negative) Urine Leukocyte Esterase 3+ /uL (Negative) Urine RBC 19 /hpf (0 - 4) Urine Microscopic WBC 40 /HPF (0-5) Urine Squamous Epithelial Cells Mod /hpf (<5) Urine Bacteria Few /hpf (None Seen) Urine Hyaline Casts Few /lpf (0 - 2) Urine Mucus Moderate (None Seen) Urine Glucose 3+ mg/dL (Normal) Erythrocyte Sedimentation Rate 9 mm/hr (0-20) C-Reactive Protein High Sensitivity 0.40 mg/dL (<1.0) Other Laboratory Tests 06/16/25 05:04 Brief Hx & Hospital Course: Ms. Curtis is a 65-year-old female prior medical history of PAD status post placement of 3 right lower extremities stents in March 2025, CAD s/p PCI x 1 drug-eluting stent placed in February 2025, DVT, type 2 diabetes mellitus, hypertension, and leukemia for which she is setting up care at [facility], who presented [facility] with chief complaint of left lower extremity pain. The patient states 2-3 weeks ago she began to have left foot pain described as stabbing/ burning, 10/10 intensity, associated with tingling sensation, without aggravating or relieving factors or changes in skin color. She denies fever, vomiting, nausea, shortness breath, chest pain, abdominal pain, palpitations, headaches, and changes in coloration of skin. Patient had 3 stents placed in the right lower extremity in March [address] Etienne, with pending procedure in [place]. due to worsening pain, the patient presented to the emergency room for evaluation. On evaluation in the ED, she is afebrile, normocardiac, slightly hypertensive, saturating adequately on room air. initial labs are significant for elevated WBCs likely due to underlying leukemia, mild hyponatremia, hyperglycemia, and UA significant for UTI. Chest x-ray shows no acute intrathoracic process. CTA abdomen with aortic runoff was ordered and shows occlusion of the left SFA proximally at its origin with reconstitution of the left popliteal artery, long segment moderate grade stenosis of the left popliteal artery approximately 60%, 70% stenosis of the proximal left external iliac artery, 50% diagnosis left EP[employer] AMBULATORY ANALYST, right external iliac artery stent, 50% stenosis right [employer]ULATORY ANALYST, distal right SFA 60% stenosis. The patient was started on IV heparin and was admitted for further workup and management. Hospital course: Initially patient was presented with acute claudication of the left lower extremity and CTA abdomen with aortic runoff revealed long segment moderate stenosis of the left popliteal artery approximately 60%, 70% stenosis of the proximal left external iliac artery, 50% left EP[employer] AMBULATORY ANALYST. Started heparin drip, Cardiology was consulted and patient underwent angiography of both right and left lower extremity, thrombectomized and angioplastied with new complete revascularization of the left lower extremity with less than 10% residual stenosis with three-vessel distal runoff anterior tibial, peroneal and the posterior tibial. Patient is completely revascularized in both lower extremities and cardiology recommended conservative medical management, aggressive risk factor modification. Discharge plan was discussed with the patient, counseled regarding the importance of DAPT and mentioned noncompliance can have catastrophic outcomes such as stent restenosis. Patient is being discharged to home with aspirin 81 mg daily, Plavix 75 mg daily, atorvastatin 80 mg HS and advised to continue home medications. She was also advised to follow up with [facility] on next Sunday06/22/2025 and Cardiology in 2 weeks. Physical Examination: General: The patient alert and oriented in person place and time. Patient following commands HEENT: Normocephalic, atraumatic, normal reactive pupils, EOM intact, pink conjunctiva, pink moist mucous membrane Respiratory/pulmonary: Bilateral chest expansion, no pain on palpation of chest wall, clear lungs bilaterally, vesicular murmurs present in almost all lung cummings, no associated crackles or wheezes. Cardiovascular: Normal RRR, normal S1 and S2, no murmurs Abdomen: Abdomen nondistended, normal bowel sounds, soft, there is no pain to palpation in any of the abdominal quadrants, no palpable masses. Extremities: No deformities, there is no peripheral edema present at the lower extremities, Pulses are decreased in left lower extremity Skin: No rashes or pruritus, there is no sacral edema present at this time. Neurological: Intact cranial nerves with no focal neurologic deficits Consults/Reason for consult Cardiology was consulted Operations or Procedures INDICATION: eval for arterial occlusion in left leg severe leg pain FINDINGS: Coronary artery calcification disease. Abdominal aorta demonstrates atherosclerotic calcification disease, eccentric mural wall thrombus without evidence for aneurysmal dilatation. 60% stenosis of the proximal celiac artery. The SMA demonstrates mild less than 50% stenosis. Bilateral renal arteries demonstrate no high-grade stenosis. ADOLFO patent. The left common iliac artery demonstrates 50% stenosis. The right common iliac artery demonstrates 50% stenosis. The left external iliac artery demonstrates 70% stenosis proximally. Approximately 50% stenosis of the left EPIC AMBULATORY ANALYST. Occlusion of the left SFA proximally with reconstitution of the left popliteal artery. The left popliteal artery demonstrates long segment moderate stenosis, 60% stenosis. The left anterior tibial, posterior tibial and peroneal arteries are patent to the level of the left ankle. There is a right external iliac artery stent. Occlusion of the right internal iliac artery proximally with distal reconstitution. Approximate 50% stenosis of the right EPIC AMBULATORY ANALYST. Right SFA demonstrates moderate grade stenosis distally, 60% stenosis. Right popliteal artery demonstrates [id number] stenosis diffusely of up to apex approximate 50% stenosis. The right posterior tibial and peroneal arteries are patent up to the level of the ankle. The right anterior tibial artery is poorly opacified as it approaches the ankle. Lung bases demonstrate atelectasis. Adrenal glands, spleen, pancreas unremarkable. No enhancing hepatic lesion. No CT evidence for cholelithiasis. No hydronephrosis. Small hiatal hernia. Small bowel loops normal in caliber. Colonic diverticular disease. Moderate volume stool in the colon. Bladder partially distended. No free pelvic fluid. No inguinal lymphadenopathy. [id number] thoracolumbar degenerative disc disease. IMPRESSION: Occlusion of the left SFA proximally /at its origin with reconstitution of the left popliteal artery. Long segment moderate grade stenosis of the left popliteal artery, approximately 60%. Recommend vascular surgery/ IR consultation. 70% stenosis of the proximal left external iliac artery. 50% stenosis left EPIC AMBULATORY ANALYST. Right external iliac artery stent. 50% stenosis right EP[employer] AMBULATORY ANALYST. Distal right SFA 60% stenosis. Poor opacification of the distal right anterior tibial artery. 60% stenosis of the proximal celiac artery. Coronary artery calcification disease. DATE OF SURGERY: 06/16/2025 PROCEDURES PERFORMED: 1. Selective left and right lower extremity angiography. 2. Thrombectomy of the left superficial femoral artery. 3. Angioplasty of the left superficial femoral artery. 4. Conscious sedation was given. DESCRIPTION OF PROCEDURE: The patient was prepped and draped in the sterile condition. Xylocaine 1% was used to anesthetize the right groin. Using a Cook needle, a right femoral artery was engaged with a Seldinger technique and a 6-St Lucian sheath in the right femoral artery. Using a 6-St Lucian sheath, angiography of the right lower extremity was performed. Then, using the contralateral approach, using a RIM catheter and angled Terumo wire, we were able to get into the left lower extremity. Then, angiography of the left lower extremity was performed. Then, the 6-St Lucian short sheath was exchanged for a 6-St Lucian long sheath. A 45 cm was placed in the distal aspect of the common femoral artery. Using a 0.018 gold wire, we were able to cross the totally occluded SFA. It was then balloon angioplastied using a 4.0 x 80 mm Kirby balloon. Entire length of the SFA from the popliteal to the origin ostium of the SFA. Following the dilatation, thrombectomy catheter was used. Shockwave device was used; a 5 mm x 60 mm shockwave device was used to thrombectomize the entire length of the SFA, from the distal SFA proximal popliteal to the ostial SFA. Following that, there was complete revascularization of the artery with minimal narrowing. At this time, the patient had complete revascularization with three-vessel distal runoff. There were no complications. The patient tolerated the procedure well. The patient received 300 mcg of intraarterial nitroglycerin. The patient will be maintained on Plavix for at least a year, and the patient should be maintained on dual antiplatelet therapy. Again, cessation of smoking is also important. RESULTS: 1. Right lower extremity angiography revealed: 1. Patent right iliac with stent noted. It was patent with no gradient across the stent. 2. Patent common femoral. 3. Patent profunda. 4. Patent superficial femoral artery with three-vessel distal runoff anterior tibial, posterior tibial, and the peroneal. 2. The left lower extremity angiography revealed: 1. Patent left common iliac. 2. Patent left common femoral. 3. Patent profunda, but the origin of the SFA was occluded, reconstitutes at the level of the popliteal just above the knee. The entire length was then thrombectomized and angioplastied with now complete revascularization of the left lower extremity with less than 10% residual stenosis with three-vessel distal runoff anterior tibial, peroneal, and the posterior tibial. CONCLUSION: At this time, the patient is completely revascularized in both lower extremities. Conservative medical management, aggressive risk modification should be implemented. We will continue to follow the patient. Condition at Discharge: Guarded Final Diagnosis/Problems List Peripheral Artery Disease with acute claudication of left lower extremity s/p angioplasty of left lower extremity History of s/p 3 stents in right lower extremity in April 2025 CAD status post PCI x1 JOEL Hypertensive heart disease Chronic HFrEF with ejection fraction 35% Acute complicated UTI Chronic Leukemia, following in [facility] Type 2 diabetes mellitus with hyperglycemia Nicotine dependence Discharge Disposition: Home Discharge Instruct/Medications Diet: Cardiac 2g Na,low cholest Activity: No Restrictions, As Tolerated Follow Up/Referral: Follow up with [facility] clinic in 1 week Follow up with cardiology in 2 weeks Medications: As per EMR Scheduled Aspirin (Aspirin Low Dose), 81 MG PO DAILY Atorvastatin Calcium (Atorvastatin Calcium), 1 TAB PO HS Clopidogrel Bisulfate (Plavix), 1 TAB PO DAILY Furosemide (Lasix), 1 TAB PO DAILY Insulin Glargine (Lantus Solostar), 15 UNIT SC HS Insulin Lispro (Humalog Kwikpen), 5 UNIT SC TID Metoprolol Succinate (Metoprolol Succinate Er), 1 TAB PO DAILY Sacubitril-Valsartan (Entresto 24-26 mg), 0.5 TAB PO DAILY Discharge Statement: "Patient was advised to return to the ER or call 911 if any headaches, dizziness, shortness of breath, chest pain, abdominal pain, bleeding, fevers, or worsening of medical condition. Patient was counseled about treatment plan, medications, possible side effects, patientverbalized understanding. All questions were answered to the best of my ability. This discharge took greater then 30 minutes in planning, reviewing documentation, counseling the patient, and discussing with other team members." ASSESSMENT ASSESSMENT Assessment Peripheral Artery Disease with acute claudication in left lower extremity s/p angioplasty in left lower extremity Visit Coding STANDARD RES Billing Provider: ANTONIO MOSQUEDA MD Date of Service if different f: Jun 17, 2025 Common Visit Codes: 40165-LJP/OBS DISCH DAY >30min ENOCH DIAZ RESIDENT Jun 17, 2025 15:44 ANTONIO MOSQUEDA MD Jun 19, 2025 23:55
--- NOTE | 2025-06-22 16:31 | ECG ---
[facility] Test Date: 2025-06-16 Test Time: 12:19:45 Pat Name: HOLLY VILLASEÑOR Department: Room: [facility] B Gender: F [employer] Driver: ROSALIA : [id number] Requested By: TIKA RODRIGUES Order Number: [id number] Reading MD: Oleksandr Mccarty Measurements Intervals [place] Rate: 79 P: 23 WY: 154 QRS: 25 QRSD: 92 T: 94 QT: 346 QTc: 396 Interpretive Statements Sinus rhythm with premature atrial complexes Inferior infarct , age undetermined Anteroseptal infarct , age undetermined Electronically Signed On 06-25-2025 15:57:44 PST by Oleksandr Mccarty Please click the below link to view image of tracing.
== END 2025-06-17 13:19 | disposition home or self-care (01) | DRG 271 ==
LOC: EDBD 05:53 → ER 05:53 → OVERFLOW 10:53 → TELE-WESTW 18:38 → WEST WING 06-17 08:44
PROVIDERS: ADMIT Student in an Organized Health Care Education/Training Program; ATTEND Student in an Organized Health Care Education/Training Program
PROC: 04CL3ZZ Extirpation of Matter from Left Femoral Artery, Percutaneous Approach (ICD-10-PCS; principal; 2025-06-16)
PROC: 047L3ZZ Dilation of Left Femoral Artery, Percutaneous Approach (ICD-10-PCS; 2025-06-16)
PROC: B41G1ZZ Fluoroscopy of Left Lower Extremity Arteries using Low Osmolar Contrast (ICD-10-PCS; 2025-06-16)
PROC: B41F1ZZ Fluoroscopy of Right Lower Extremity Arteries using Low Osmolar Contrast (ICD-10-PCS; 2025-06-16)
DX: E11.51 Type 2 diabetes mellitus with diabetic peripheral angiopathy without gangrene (principal); N39.0 Urinary tract infection, site not specified; F17.210 Nicotine dependence, cigarettes, uncomplicated; I70.8 Atherosclerosis of other arteries; I10 Essential (primary) hypertension; I70.202 Unspecified atherosclerosis of native arteries of extremities, left leg; I25.10 Atherosclerotic heart disease of native coronary artery without angina pectoris; Z86.718 Personal history of other venous thrombosis and embolism; Z90.710 Acquired absence of both cervix and uterus; Z95.5 Presence of coronary angioplasty implant and graft
CPT/HCPCS: 34201; 36415; 37224; 71045; 75635; 75716; 80048; 80053; 81001; 82962; 83605; 85007; 85027; 85610; 85652; 85730; 86141; 86703; 86706; 86803; 87040; 87340; 93005; 93971; 96361; 96365; 96375; 99152; C1725; G0378; J1815; J1885; J2250; Q9967